=== PATIENT | male | born 1945 | race Caucasian/White ===

== ENCOUNTER 2016-08-05 06:12 | Inpatient (IN) | payer BC, OTHER ==
[~2016-08-05] VITALS: Ht 172.7 cm; Wt 70.3 kg
[2016-08-05] VITALS (24 sets, daily range): BP systolic 124–148; BP diastolic 66–93; PULSE 65–78; TEMP 36.5–37.7; O2SAT 97–100; Ht 172.7 cm; Wt 70.3 kg
[~2016-08-05 06:12] MED LIST: ATEN-173 PO; CHOL1TAB42 PO; COD1OIL4 PO; LUTE15CA PO; LYCOCAP2 PO; MULT-506 PO; [UNRECOGNIZED DRUG - CODE] PO
--- NOTE | 2016-08-05 06:53 | EMERGENCY ROOM VISIT NOTE ---
History First contact with patient: 06:30 Chief Complaint: CHEST PAIN Stated Complaint: CHEST PAIN,PAIN BEHIND EYES AND FOREHEAD-DULLACHE Nursing Triage Summary: pt states had some cp friday night and when he woke he was ok, then last night around 0 he devloepd cp again while sitting watching tv and eating pizza, some nausea at thsat time History of Present Illness The patient is a 71 year old male who presents to the Emergency Room with complaints of chest pain last night. Patient notes he was sitting at home last night approximately 10 o'clock eating pizza when the chest pain came on. The chest pain is sternal and pressure-like , rated at 6/10 without radiation. He did not try to ambulate at the time. The pain persisted which caused him to come to the ED for further evaluation. He had a similar episode the night prior where he notes he woke up feeling "uncomfortable/restless" without being able to be more specific. He notes a similar discomfort. He tried to walk and actually noted that it got better with ambulation. He was subsequently able to get back to sleep. He denies palpitations, shortness of breath, orthopnea or edema. He has not had any coughing or wheezing. He denies any prolonged periods of immobility or recent surgery In addition to his symptoms, he has noted a pressures-like pain in his face. He cannot rate the pain as it varies with how distracted he. The pain reminds him of when he has had sinus infections in the past. He denies any nasal discharge, sore throat or ear pressure. He denies any fevers, nightsweats and chills. Review of Systems Prostate Ca with Prostatectomy in 2000 Hypertension No noted history of cardiac disorders, CAD, Hypercholesterolemia or type 2 diabetes mellitus. Past Medical/Surgical History Medical Problems: (1) Hypertension Family History Mother had impaired fasting glucose Social History Smoking Status: Never Smoker Smokeless Tobacco Use: No Alcohol Use: occasionally (1 beer/week) Drug Use: none Marital Status: Housing Status: lives with significant other Occupation Status: retired Current/Historical Medications Scheduled Atenolol (Tenormin), 25 MG PO DAILY Cholecalciferol (Vitamin D), 1 TAB PO DAILY Cholecalciferol (Vitamin D), 1 TAB PO DAILY Cod Liver Oil (Cod Liver Oil), 1 PO DAILY Lutein-Zeaxanthin (Lutein), 1 CAP PO DAILY Lycopene (Lycopene), 1 CAP PO DAILY Multivitamin (Multivitamin), 1 TAB PO DAILY Pomegranate (Punica Granatum) (Pomegranate Extract), 1,000 MG PO DAILY Allergies Coded Allergies: No Known Allergies (Unverified , 08/05/16) Physical Exam Vital Signs Date Time Temp Pulse Resp B/P Pulse Ox O2 Delivery O2 Flow Rate FiO2 08/05/16 07:46 68 18 127/75 95 Room Air 08/05/16 07:30 75 18 166/87 95 Room Air 08/05/16 07:07 75 18 162/94 97 Room Air 08/05/16 06:23 94 08/05/16 06:21 99 Room Air 08/05/16 06:15 36.5 94 20 177/96 99 Room Air Pain Rating (0-10): 4 Physical Exam Constitutional: Vital signs as above were reviewed. Eyes: Pupils equal, round, and reactive to light. Extraocular muscles are intact. No proptosis. No photophobia. ENT: Mucous membranes are moist. Oropharynx is clear. No sinus tenderness. TMs are clear bilaterally. Cardiovascular: Heart with a regular rate and rhythm. Early systolic murmur at LLSB. Pulses are palpable and symmetric in all 4 extremities. JVD at 45 degrees. No pedal edema appreciated. Respiratory: Lungs clear to auscultation bilaterally. No wheezes, rales, or rhonchi appreciated. No accessory muscle use. No retractions. No increased work of breathing. GI: Abdomen soft, nontender, nondistended. Normal active bowel sounds. No abdominal hernias appreciated. No rebound. No guarding. : No CVA tenderness appreciated. Musculoskeletal: No midline cervical or vertebral tenderness. No gross deformities. No bony tenderness. No calf swelling or tenderness. Integumentary: Warm, dry, no rashes appreciated. Neurological: Patient awake, alert, and oriented x 3. Cranial nerves two through 12 grossly intact. Motor 5 out of 5 strength bilateral upper and lower extremities. No gross sensory deficits. [id number] is intact. Negative Romberg. Ambulates with a steady gait. Lymph: No cervical lymphadenopathy appreciated. Medical Decision & Procedures ER Provider Diagnostic Interpretation: EKG: Normal sinus rhythm rate 89 No ectopy or pauses RBBB Q waves in V3, V4, T waves in versions in lead V2 and V3 Laboratory Results 08/05/16 06:25 Red Blood Count 4.22, Mean Corpuscular Volume 91.0, Mean Corpuscular Hemoglobin 31.8, Mean Corpuscular Hemoglobin Concent 34.9, Mean Platelet Volume 10.5, Neutrophils (%) (Auto) 73.2, Lymphocytes (%) (Auto) 16.2, Monocytes (%) (Auto) 9.7, Eosinophils (%) (Auto) 0.8, Basophils (%) (Auto) 0.1, Neutrophils # (Auto) 5.42, Lymphocytes # (Auto) 1.20, Monocytes # (Auto) 0.72, Eosinophils # (Auto) 0.06, Basophils # (Auto) 0.01 08/05/16 06:25 Test 08/05/16 06:25 08/05/16 07:06 White Blood Count 7.41 K/uL (4.8-10.8) Red Blood Count 4.22 M/uL (4.7-6.1) Hemoglobin 13.4 g/dL (14.0-18.0) Hematocrit 38.4 % (42-52) Mean Corpuscular Volume 91.0 fL (80-100) Mean Corpuscular Hemoglobin 31.8 pg (25-34) Mean Corpuscular Hemoglobin Concent 34.9 g/dl (32-36) Platelet Count 226 K/uL (130-400) Mean Platelet Volume 10.5 fL (7.4-10.4) Neutrophils (%) (Auto) 73.2 % Lymphocytes (%) (Auto) 16.2 % Monocytes (%) (Auto) 9.7 % Eosinophils (%) (Auto) 0.8 % Basophils (%) (Auto) 0.1 % Neutrophils # (Auto) 5.42 K/uL (1.4-6.5) Lymphocytes # (Auto) 1.20 K/uL (1.2-3.4) Monocytes # (Auto) 0.72 K/uL (0.11-0.59) Eosinophils # (Auto) 0.06 K/uL (0-0.5) Basophils # (Auto) 0.01 K/uL (0-0.2) RDW Standard Deviation 42.8 fL (36.4-46.3) RDW Coefficient of Variation 12.9 % (11.5-14.5) Immature Granulocyte % (Auto) 0.0 % Immature Granulocyte # (Auto) 0.00 K/uL (0.00-0.02) Prothrombin Time 10.7 SECONDS (9.0-12.0) Prothromb Time International Ratio 1.0 (0.9-1.1) Activated Partial Thromboplast Time 26.0 SECONDS (21.0-31.0) Partial Thromboplastin Ratio 1.0 Anion Gap 10.0 mmol/L (3-11) Est Creatinine Clear Calc Drug Dose 72.3 ml/min Estimated GFR () 98.8 Estimated GFR (Non- 85.2 BUN/Creatinine Ratio 20.8 (10-20) Calcium Level 9.2 mg/dl (8.5-10.1) Total Bilirubin 0.5 mg/dl (0.2-1) Aspartate Amino Transf (AST/SGOT) 228 U/L (15-37) Alanine Aminotransferase (ALT/SGPT) 82 U/L (12-78) Alkaline Phosphatase 71 U/L (45-117) Total Creatine Kinase 1738 U/L (39-308) Creatine Kinase MB 124.5 ng/ml (0.5-3.6) Creatine Kinase MB Ratio 7.2 (0-3.0) Troponin I 45.500 ng/ml (0-0.045) Total Protein 7.9 gm/dl (6.4-8.2) Albumin 4.3 gm/dl (3.4-5.0) Globulin 3.6 gm/dl (2.5-4.0) Albumin/Globulin Ratio 1.2 (0.9-2) Bedside Troponin I 28.390 ng/ml (0-0.045) Medications Administered Medications (Trade) Dose Ordered Sig/Rober Route Start Time Stop Time Status Last Admin Dose Admin Nitroglycerin (Nitroglycerin 2% Oint) 1 inch Q6H EXT 08/05/16 07:00 09/04/16 06:59 08/05/16 07:07 1 INCH Nitroglycerin (Nitrostat Tab) 0.4 mg Q5M STAT SL 08/05/16 07:29 08/05/16 07:30 DC 08/05/16 07:33 0.4 MG Heparin Sodium/ Dextrose 1 ea NOW STAT N/A 08/05/16 07:58 08/05/16 08:00 DC 08/05/16 08:11 1 EA Aspirin (Aspirin Chew) 324 mg NOW STAT PO 08/05/16 08:07 08/05/16 08:09 DC 08/05/16 08:14 324 MG Amoxicillin/ Clavulanate Potassium (Augmentin Tab) 875 mg NOW ONCE PO 08/05/16 08:15 08/05/16 08:16 DC 08/05/16 08:15 875 MG Heparin Sodium/ Dextrose (Heparin 25,000 Unit/500ml D5W) 25,000 unit STK-MED ONCE .ROUTE 08/05/16 08:11 08/05/16 08:12 DC 08/05/16 08:16 25,000 UNIT Heparin Sodium (Porcine) (Heparin Sq 5000 Unit/0.5ml) 5,000 unit STK-MED ONCE .ROUTE 08/05/16 08:11 08/05/16 08:12 DC 08/05/16 08:15 5,000 UNIT Procedure [~ rep ct add3]] CHEST ONE VIEW PORTABLE CLINICAL HISTORY: chest pain COMPARISON STUDY: No previous studies for comparison. FINDINGS: The heart is normal in size given the AP technique. There is no focal pulmonary consolidation. There is no failure. There are no pleural effusions. Underlying emphysema is suspected.[ IMPRESSION: No active disease in the chest. CT OF THE HEAD WITHOUT CONTRAST CLINICAL HISTORY: Pain behind eyes and forehead. Evaluate for bleed. COMPARISON STUDY: No previous studies for comparison. CT DOSE: 687.98 mGy.cm TECHNIQUE: Helical axial images of the head were obtained without IV contrast. Automated exposure control was utilized for the study. FINDINGS: No acute intracranial hemorrhage, midline shift or mass effect is present. Ventricular system is unremarkable Global. The basilar cisterns are patent. There are no extra-axial collections. Stewart-white differentiation is maintained. There are no findings to suggest acute dural sinus thrombosis or acute territorial infarct. Mastoid air cells are clear. Right anterior ethmoid air cells and the right frontal sinus are opacified. There are no calvarial abnormalities. IMPRESSION: 1. No acute intracranial findings. 2. Right anterior ethmoid and frontal sinus opacification. ED Course 06:30 - Patient seen and assessed 07:00 - Discussed case with Dr. Azevedo, attending ED physician Initial orders placed: CBC, CMP, Cardiac Enzymes with CXR 1 inch Nitro Ointment 07:45 - Discussed with attending; troponin returns at 45 Patient complaints of worsening frontal pain CT sinuses ordered and pending Dr. Azevedo has discussed case with hospitalist service, patient to be admitted for further monitoring/evaluation 08:00 - CT Reviewed; no evidence of intracranial bleed; right sinus opacification ASA 325 mg STAT Heparin IV drip Medical Decision Patient presents with substernal chest pain. In addition, CT has right sinus opacification suggestive of acute sinusitis. Differential includes, Angina, ACS, Pneumonia, Pneumothorax, Pleural effusion, Pleurisy, Costochondritis, GERD. Chest x-ray reviewed and rules out Pneumothorax, or effusion. Troponin positive at 45, patient does have T wave inversions V1 and V2 with Q waves in V3 and V4. Patient requires initiation of ACS protocol with high doses ASA as well as initiation of IV heparin drip. Regarding, sinusitis, patient to be started on course of Augmentin. A consultation was placed with the hospitalist. The case was discussed and diagnostics were reviewed. The patient will be evaluated in the ER for further treatment. Impression Primary Impression: Acute myocardial infarction Additional Impressions: Acute bacterial sinusitis Hypertension Departure Information Dispostion Being Evaluated By Hospitalist Condition GOOD Referrals Nima Chavarria M.D. (PCP) Patient Instructions [facility] Problem Qualifiers
[2016-08-05] MEDS ORDERED: NITROGLYCERIN OINT 2% 1GM PACKET EXT SCH (07:00)
[2016-08-05] MEDS ORDERED: NITROGLYCERIN OINT 2% 1GM PACKET ONE (07:05)
[2016-08-05 07:06] LABS: BASO % 0.1 %; BASO ABS # 0.01 K/uL (0-0.2); COMPLETE YES; EOS % 0.8 %; HEMATOCRIT 38.4 % (42-52); LYMPH % 16.2 %; MEAN CORPUSCULAR HEMOGLOBIN 31.8 pg (25-34); MEAN CORPUSCULAR HGB CONC 34.9 g/dl (32-36); MEAN PLATELET VOLUME 10.5 fL (7.4-10.4); MONO % 9.7 %; NEUT % 73.2 %; PLATELET COUNT 226 K/uL (130-400); RED BLOOD COUNT 4.22 M/uL (4.7-6.1); WHITE BLOOD COUNT 7.41 K/uL (4.8-10.8)
[2016-08-05 07:15] LABS: BUN/CREATININE RATIO 20.8 (10-20); CALCIUM 9.2 mg/dl (8.5-10.1); CREATININE 0.88 mg/dl (0.60-1.40); POTASSIUM 3.8 mmol/L (3.5-5.1)
--- NOTE | 2016-08-05 07:15 | DIAGNOSTIC IMAGING REPORT ---
CHEST ONE VIEW PORTABLE CLINICAL HISTORY: chest pain COMPARISON STUDY: No previous studies for comparison. FINDINGS: The heart is normal in size given the AP technique. There is no focal pulmonary consolidation. There is no failure. There are no pleural effusions. Underlying emphysema is suspected.[ IMPRESSION: No active disease in the chest. Electronically signed by: Romaine Diaz M.D. 08/05/2016 7:13 AM Dictated Date/Time: 08/05/2016 7:13 AM
[2016-08-05] MEDS ORDERED: NITROGLYCERIN 0.4 MG SL PER TAB CHARGE SL STA (07:29)
[2016-08-05 07:41] LABS: PROTHROMBIN TIME (PATIENT) 10.7 SECONDS (9.0-12.0)
[2016-08-05 07:45] LABS: ALB/GLOB RATIO 1.2 (0.9-2); CKMB/CK RATIO 7.2 (0-3.0)
--- NOTE | 2016-08-05 07:53 | DIAGNOSTIC IMAGING REPORT ---
CT OF THE HEAD WITHOUT CONTRAST CLINICAL HISTORY: Pain behind eyes and forehead. Evaluate for bleed. COMPARISON STUDY: No previous studies for comparison. CT DOSE: 687.98 mGy.cm TECHNIQUE: Helical axial images of the head were obtained without IV contrast. Automated exposure control was utilized for the study. FINDINGS: No acute intracranial hemorrhage, midline shift or mass effect is present. Ventricular system is unremarkable Global. The basilar cisterns are patent. There are no extra-axial collections. Stewart-white differentiation is maintained. There are no findings to suggest acute dural sinus thrombosis or acute territorial infarct. Mastoid air cells are clear. Right anterior ethmoid air cells and the right frontal sinus are opacified. There are no calvarial abnormalities. IMPRESSION: 1. No acute intracranial findings. 2. Right anterior ethmoid and frontal sinus opacification. Electronically signed by: Alden Resendiz M.D. 08/05/2016 7:51 AM Dictated Date/Time: 08/05/2016 7:48 AM
[2016-08-05] MEDS ORDERED: ASPIRIN 325 MG ECTAB PO STA (07:58)
[2016-08-05] MEDS ORDERED: ASPIRIN 324 MG CHEW PO STA (08:07)
[2016-08-05] MEDS ORDERED: HEPARIN SOD 5000 UNIT/0.5 ML CARP ONE (08:11)
[2016-08-05] MEDS ORDERED: HEPARIN 25000 UNIT/500 ML D5W ONE (08:11)
[2016-08-05] MEDS ORDERED: AMOXICILLIN/CLAVULANATE TAB 875 MG TAB PO ONE (08:15)
[2016-08-05] MEDS ORDERED: ACETAMINOPHEN 325 MG TAB PO PRN ×2 (08:45→14:30)
[2016-08-05] MEDS ORDERED: MAGNESIUM HYDROXIDE SUSP 30 ML UDC PO PRN (08:45)
[2016-08-05] MEDS ORDERED: NITROGLYCERIN 0.4 MG SL PER TAB CHARGE SL PRN ×2 (08:45→14:30)
[2016-08-05] MEDS ORDERED: ALUMINUM/MAGNESIUM/SIMETH (MAALOX MAX) 30 ML UDC PO PRN (08:45)
[2016-08-05] MEDS ORDERED: MoRPHine SULFATE 2 MG/ML CARP IV PRN (08:45)
[2016-08-05] MEDS ORDERED: ONDANSETRON INJ 2 MG/ML 2 ML VIAL IV PRN (08:45)
[2016-08-05] MEDS ORDERED: ACETAMINOPHEN 325 MG TAB ONE (08:47)
--- NOTE | 2016-08-05 08:58 | History and Physical ---
History & Physical Date & Time of Service: Aug 05, 2016 at 08:47 Chief Complaint: Chest Pain,Pain Behind Eyes And Forehead-Dullache Primary Care Physician: Nima Chavarria M.D. History of Present Illness Source: patient, family The patient is a 71 year old male who presents to the Emergency Room with chest pain. He was watching TV last night when he started having substernal mild chest pressure, associated with bi frontal headache. Also associated with some chills and nausea. denied any palpitation or SOB. pain started at rest and has been waxing and weaning, currently 2/10 (6/10 in severity at its worst) walking helped alleviate some of his discomfort. admits history of hypertension that he takes atenolol daily for and a prostatectomy due to prostate cancer in 2000. other than that he is fairly healthy Past Medical/Surgical History Medical Problems: (1) Hypertension Status: Chronic Family History Patient reports no known family medical history. Social History Smoking Status: Never Smoker Smokeless Tobacco Use: No Drug Use: none Marital Status: Occupational Status: retired Multi-Drug Resistant Organisms History of MDRO: No Allergies Coded Allergies: No Known Allergies (Unverified , 08/05/16) Home Medications Scheduled Atenolol (Tenormin), 25 MG PO DAILY Cholecalciferol (Vitamin D), 1 TAB PO DAILY Cholecalciferol (Vitamin D), 1 TAB PO DAILY Cod Liver Oil (Cod Liver Oil), 1 PO DAILY Lutein-Zeaxanthin (Lutein), 1 CAP PO DAILY Lycopene (Lycopene), 1 CAP PO DAILY Multivitamin (Multivitamin), 1 TAB PO DAILY Pomegranate (Punica Granatum) (Pomegranate Extract), 1,000 MG PO DAILY Review of Systems Constitutional: + chills, No fever, No sweats ENT: No hearing loss Respiratory: No cough, No dyspnea at rest, No dyspnea on exertion, No shortness of breath Cardiovascular: + chest pain, No edema, No palpitations Abdomen: + nausea, No pain, No vomiting Musculoskeletal: + joint pain, + muscle pain Neurologic: No numbness/tingling, No paralysis, No vertigo, No weakness Psychiatric: No depression symptoms Endocrine: + fatigue Physical Exam Vital Signs Date Time Temp Pulse Resp B/P Pulse Ox O2 Delivery O2 Flow Rate FiO2 08/05/16 07:46 68 18 127/75 95 Room Air 08/05/16 07:30 75 18 166/87 95 Room Air 08/05/16 07:07 75 18 162/94 97 Room Air 08/05/16 06:23 94 08/05/16 06:21 99 Room Air 08/05/16 06:15 36.5 94 20 177/96 99 Room Air General Appearance: no apparent distress, + thin Eyes: normal inspection, PERRL, EOMI ENT: hearing grossly normal Neck: supple, thyroid normal Respiratory/Chest: chest non-tender, lungs clear, normal breath sounds, no respiratory distress, no accessory muscle use Cardiovascular: regular rate, rhythm, no edema, no gallop, no murmur, normal peripheral pulses Abdomen/GI: non tender, soft Back: normal inspection, no muscle spasm Extremities/Musculoskelatal: normal inspection, no pedal edema, normal range of motion, non-tender Neurologic/Psych: balloon maker II-XII nml as tested, no motor/sensory deficits, alert, normal mood/affect, normal reflexes, oriented x 3 Skin: normal color, warm/dry, no rash Diagnostics Laboratory Results Results Past 24 Hours Test 08/05/16 06:25 08/05/16 07:06 08/05/16 08:35 08/05/16 08:43 Range/Units White Blood Count 7.41 4.8-10.8 K/uL Red Blood Count 4.22 4.7-6.1 M/uL Hemoglobin 13.4 14.0-18.0 g/dL Hematocrit 38.4 42-52 % Mean Corpuscular Volume 91.0 80-100 fL Mean Corpuscular Hemoglobin 31.8 25-34 pg Mean Corpuscular Hemoglobin Concent 34.9 32-36 g/dl Platelet Count 226 130-400 K/uL Mean Platelet Volume 10.5 7.4-10.4 fL Neutrophils (%) (Auto) 73.2 % Lymphocytes (%) (Auto) 16.2 % Monocytes (%) (Auto) 9.7 % Eosinophils (%) (Auto) 0.8 % Basophils (%) (Auto) 0.1 % Neutrophils # (Auto) 5.42 1.4-6.5 K/uL Lymphocytes # (Auto) 1.20 1.2-3.4 K/uL Monocytes # (Auto) 0.72 0.11-0.59 K/uL Eosinophils # (Auto) 0.06 0-0.5 K/uL Basophils # (Auto) 0.01 0-0.2 K/uL RDW Standard Deviation 42.8 36.4-46.3 fL RDW Coefficient of Variation 12.9 11.5-14.5 % Immature Granulocyte % (Auto) 0.0 % Immature Granulocyte # (Auto) 0.00 0.00-0.02 K/uL Prothrombin Time 10.7 9.0-12.0 SECONDS Prothromb Time International Ratio 1.0 0.9-1.1 Activated Partial Thromboplast Time 26.0 21.0-31.0 SECONDS Partial Thromboplastin Ratio 1.0 Sodium Level 140 136-145 mmol/L Potassium Level 3.8 3.5-5.1 mmol/L Chloride Level 104 98-107 mmol/L Carbon Dioxide Level 26 21-32 mmol/L Anion Gap 10.0 3-11 mmol/L Blood Urea Nitrogen 18 7-18 mg/dl Creatinine 0.88 0.60-1.40 mg/dl Est Creatinine Clear Calc Drug Dose 72.3 ml/min Estimated GFR () 98.8 Estimated GFR (Non- 85.2 BUN/Creatinine Ratio 20.8 10-20 Random Glucose 145 70-99 mg/dl Calcium Level 9.2 8.5-10.1 mg/dl Total Bilirubin 0.5 0.2-1 mg/dl Aspartate Amino Transf (AST/SGOT) 228 15-37 U/L Alanine Aminotransferase (ALT/SGPT) 82 12-78 U/L Alkaline Phosphatase 71 45-117 U/L Total Creatine Kinase 1738 39-308 U/L Creatine Kinase MB 124.5 0.5-3.6 ng/ml Creatine Kinase MB Ratio 7.2 0-3.0 Troponin I 45.500 0-0.045 ng/ml Total Protein 7.9 6.4-8.2 gm/dl Albumin 4.3 3.4-5.0 gm/dl Globulin 3.6 2.5-4.0 gm/dl Albumin/Globulin Ratio 1.2 0.9-2 Bedside Troponin I 28.390 0-0.045 ng/ml CXR normal EKG depression in marleen lateral leads, Q waves normal sinus Impression Assessment and Plan NSTEMI HTN Acute Sinusitis Plan: Admit to ICU Consult hod carrier serial cardiac enz Heparin drip Aspirin stat NTG paste Home meds (atenolol 25mg) Lipids panel HgbA1C case was discussed with hod carrier Yuly who kindly agreed to see the patient VTE Prophylaxis VTE Risk Assessment Done? Y/N: Yes Risk Level: High
[2016-08-05] MEDS: RANITIDINE HCL 150 MG TAB PO SCH ×2 (09:00→20:49)
--- NOTE | 2016-08-05 09:03 | EMERGENCY ROOM VISIT NOTE ---
History Report prepared by Tyshawn: Zurdo Tavera Under the Supervision of: Dr. Willie Azevedo M.D. First contact with patient: 06:32 Chief Complaint: CHEST PAIN Stated Complaint: CHEST PAIN,PAIN BEHIND EYES AND FOREHEAD-DULLACHE Nursing Triage Summary: pt states had some cp friday night and when he woke y he was ok, then last night around 2200 he devloepd cp again while sitting watching tv and eating pizza, some nausea at thsat time History of Present Illness The patient is a 71 year old male who presents to the Emergency Room with complaints of waxing and waning chest pain beginning nine hours prior to arrival. He describes his pain as an ache/pressure and currently rates his discomfort as a 4/10 in severity. The patient associates intermittent jaw pain with today's symptoms. He states his chest pain began last evening around 2200, while he was sitting down, watching TV, and eating pizza. He notes the pain persisted throughout the night, in which, walking helped alleviate some of his discomfort. The patient states his chest pain was a 6/10 in severity at its worst. He also complains of sinus pressure in his face that has been giving him discomfort. The patient notes the sinus pressure is similar to his sinus problems in the past. The states he has a history of hypertension that he takes medication for and a prostatectomy due to prostate cancer. He denies a personal and family history of heart disease. The patient denies swelling or pain in his legs, chest pain radiating to his arms or back, shortness of breath, cough, and sorethroat. 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 Review of Systems See HPI for pertinent positives & negatives. A total of 10 systems reviewed and were otherwise negative. Past Medical & Surgical Medical Problems: (1) Chest pain (2) Hypertension Family History Patient reports no known family medical history. Social History Smoking Status: Never Smoker Smokeless Tobacco Use: No Alcohol Use: occasionally (1 beer/week) Drug Use: none Marital Status: Housing Status: lives with significant other Occupation Status: retired Current/Historical Medications Scheduled Atenolol (Tenormin), 25 MG PO DAILY Cholecalciferol (Vitamin D), 1 TAB PO DAILY Cholecalciferol (Vitamin D), 1 TAB PO DAILY Cod Liver Oil (Cod Liver Oil), 1 PO DAILY Lutein-Zeaxanthin (Lutein), 1 CAP PO DAILY Lycopene (Lycopene), 1 CAP PO DAILY Multivitamin (Multivitamin), 1 TAB PO DAILY Pomegranate (Punica Granatum) (Pomegranate Extract), 1,000 MG PO DAILY Allergies Coded Allergies: No Known Allergies (Unverified , 08/05/16) Physical Exam Vital Signs Date Time Temp Pulse Resp B/P Pulse Ox O2 Delivery O2 Flow Rate FiO2 08/05/16 08:46 62 18 134/71 96 Room Air 08/05/16 07:46 68 18 127/75 95 Room Air 08/05/16 07:30 75 18 166/87 95 Room Air 08/05/16 07:07 75 18 162/94 97 Room Air 08/05/16 06:23 94 08/05/16 06:21 99 Room Air 08/05/16 06:15 36.5 94 20 177/96 99 Room Air Physical Exam Constitutional: Vital signs reviewed. Eyes: Pupils are equal round reactive to light. Conjunctiva are noninjected. ENT: Pharynx is clear without erythema or exudate. Mucous membranes are moist. Neck supple without meningeal signs. Respiratory: Clear to auscultation bilaterally. Breath sounds are equal bilaterally. Cardiovascular: Regular rate and rhythm. No rubs or gallops. GI: Soft, nondistended and nontender. Bowel sounds are present. Musculoskeletal: No peripheral edema. No lower extremity tenderness. Integumentary: No cyanosis. Neurological: The patient is awake and alert. No focal deficits. Psychiatric: Normal affect. Medical Decision & Procedures ER Provider Diagnostic Interpretation: X-ray results as stated below per interpretation by me and the radiologist: CT results as stated below per my review and radiologist interpretation. CHEST ONE VIEW PORTABLE CLINICAL HISTORY: chest pain COMPARISON STUDY: No previous studies for comparison. FINDINGS: The heart is normal in size given the AP technique. There is no focal pulmonary consolidation. There is no failure. There are no pleural effusions. Underlying emphysema is suspected.[ IMPRESSION: No active disease in the chest. Electronically signed by: Romaine Diaz M.D. 08/05/2016 7:[address] OF THE HEAD WITHOUT CONTRAST CLINICAL HISTORY: Pain behind eyes and forehead. Evaluate for bleed. COMPARISON STUDY: No previous studies for comparison. CT DOSE: 687.98 mGy.cm TECHNIQUE: Helical axial images of the head were obtained without IV contrast. Automated exposure control was utilized for the study. FINDINGS: No acute intracranial hemorrhage, midline shift or mass effect is present. Ventricular system is unremarkable Global. The basilar cisterns are patent. There are no extra-axial collections. Stewart-white differentiation is maintained. There are no findings to suggest acute dural sinus thrombosis or acute territorial infarct. Mastoid air cells are clear. Right anterior ethmoid air cells and the right frontal sinus are opacified. There are no calvarial abnormalities. IMPRESSION: 1. No acute intracranial findings. 2. Right anterior ethmoid and frontal sinus opacification. Electronically signed by: Alden Resendiz M.D. 08/05/2016 7:51 AM Dictated Date/Time: 08/05/2016 7:48 AM Laboratory Results 08/05/16 06:25 Red Blood Count 4.22, Mean Corpuscular Volume 91.0, Mean Corpuscular Hemoglobin 31.8, Mean Corpuscular Hemoglobin Concent 34.9, Mean Platelet Volume 10.5, Neutrophils (%) (Auto) 73.2, Lymphocytes (%) (Auto) 16.2, Monocytes (%) (Auto) 9.7, Eosinophils (%) (Auto) 0.8, Basophils (%) (Auto) 0.1, Neutrophils # (Auto) 5.42, Lymphocytes # (Auto) 1.20, Monocytes # (Auto) 0.72, Eosinophils # (Auto) 0.06, Basophils # (Auto) 0.01 08/05/16 06:25 Test 08/05/16 06:25 08/05/16 06:35 08/05/16 07:06 08/05/16 08:35 White Blood Count 7.41 K/uL (4.8-10.8) Red Blood Count 4.22 M/uL (4.7-6.1) Hemoglobin 13.4 g/dL (14.0-18.0) Hematocrit 38.4 % (42-52) Mean Corpuscular Volume 91.0 fL (80-100) Mean Corpuscular Hemoglobin 31.8 pg (25-34) Mean Corpuscular Hemoglobin Concent 34.9 g/dl (32-36) Platelet Count 226 K/uL (130-400) Mean Platelet Volume 10.5 fL (7.4-10.4) Neutrophils (%) (Auto) 73.2 % Lymphocytes (%) (Auto) 16.2 % Monocytes (%) (Auto) 9.7 % Eosinophils (%) (Auto) 0.8 % Basophils (%) (Auto) 0.1 % Neutrophils # (Auto) 5.42 K/uL (1.4-6.5) Lymphocytes # (Auto) 1.20 K/uL (1.2-3.4) Monocytes # (Auto) 0.72 K/uL (0.11-0.59) Eosinophils # (Auto) 0.06 K/uL (0-0.5) Basophils # (Auto) 0.01 K/uL (0-0.2) RDW Standard Deviation 42.8 fL (36.4-46.3) RDW Coefficient of Variation 12.9 % (11.5-14.5) Immature Granulocyte % (Auto) 0.0 % Immature Granulocyte # (Auto) 0.00 K/uL (0.00-0.02) Prothrombin Time 10.7 SECONDS (9.0-12.0) Prothromb Time International Ratio 1.0 (0.9-1.1) Activated Partial Thromboplast Time 26.0 SECONDS (21.0-31.0) Partial Thromboplastin Ratio 1.0 D-Dimer 230 ug/L FEU (0-500) Anion Gap 10.0 mmol/L (3-11) Est Creatinine Clear Calc Drug Dose 72.3 ml/min Estimated GFR () 98.8 Estimated GFR (Non- 85.2 BUN/Creatinine Ratio 20.8 (10-20) Calcium Level 9.2 mg/dl (8.5-10.1) Phosphorus Level 2.5 mg/dl (2.5-4.9) Magnesium Level 2.0 mg/dl (1.8-2.4) Total Bilirubin 0.5 mg/dl (0.2-1) Aspartate Amino Transf (AST/SGOT) 228 U/L (15-37) Alanine Aminotransferase (ALT/SGPT) 82 U/L (12-78) Alkaline Phosphatase 71 U/L (45-117) Total Protein 7.9 gm/dl (6.4-8.2) Albumin 4.3 gm/dl (3.4-5.0) Globulin 3.6 gm/dl (2.5-4.0) Albumin/Globulin Ratio 1.2 (0.9-2) Triglycerides Level 86 mg/dl (0-150) Cholesterol Level 240 mg/dl (0-200) HDL Cholesterol 93 mg/dl LDL Cholesterol, Calculated 130 mg/dl VLDL Cholesterol, Calculated 17 mg/dl Cholesterol/HDL Ratio 2.6 Estimated Average Glucose 108 mg/dl Hemoglobin A1c 5.4 % (4.5-5.6) Bedside Troponin I 28.390 ng/ml (0-0.045) Creatine Kinase MB Ratio (0-3.0) Test 08/05/16 09:36 Laboratory results as reviewed by me. Medications Administered Medications (Trade) Dose Ordered Sig/Rober Route Start Time Stop Time Status Last Admin Dose Admin Nitroglycerin (Nitroglycerin 2% Oint) 1 inch Q6H EXT 08/05/16 07:00 09/04/16 06:59 08/05/16 07:07 1 INCH Nitroglycerin (Nitrostat Tab) 0.4 mg Q5M STAT SL 08/05/16 07:29 08/05/16 07:30 DC 08/05/16 07:33 0.4 MG Heparin Sodium/ Dextrose 1 ea NOW STAT N/A 08/05/16 07:58 08/05/16 08:00 DC 08/05/16 08:11 1 EA Aspirin (Aspirin Chew) 324 mg NOW STAT PO 08/05/16 08:07 08/05/16 08:09 DC 08/05/16 08:14 324 MG Amoxicillin/ Clavulanate Potassium (Augmentin Tab) 875 mg NOW ONCE PO 08/05/16 08:15 08/05/16 08:16 DC 08/05/16 08:15 875 MG Heparin Sodium/ Dextrose (Heparin 25,000 Unit/500ml D5W) 25,000 unit STK-MED ONCE .ROUTE 08/05/16 08:11 08/05/16 08:12 DC 08/05/16 08:16 25,000 UNIT Heparin Sodium (Porcine) (Heparin Sq 5000 Unit/0.5ml) 5,000 unit STK-MED ONCE .ROUTE 08/05/16 08:11 08/05/16 08:12 DC 08/05/16 08:15 5,000 UNIT Acetaminophen (Tylenol Tab) 650 mg STK-MED ONCE .ROUTE 08/05/16 08:47 08/05/16 08:49 DC 08/05/16 08:51 650 MG ECG Indication: chest pain Rate (beats per minute): 89 Rhythm: normal sinus Findings: RBBB, no ectopy Comparison ECG Date: no prior available Change: Repeat EKG: Normal sinus rhythm. Rate 75. Persistent RBBB. T wave inversions anteriorly. No ectopy. ED Course 0659: The patient was evaluated in room A10. A complete history and physical exam was performed. 0700: Ordered Nitroglycerin 1 inch EXT. 0728: I reassessed the patient at this time, and he states his chest pain is now a 2-3/10 in severity after Nitro. The patient notes his sinus pressure is bothering him the most at this time. I discussed the patient's results with him , including his elevated troponin. I performed a repeat 12-Lead EKG, as well. 0729: Ordered Nitroglycerin 0.4 mg SL. Repeat EKG: Normal sinus rhythm. Rate 75. Persistent RBBB. T wave inversions anteriorly. No ectopy. 0735: I spoke to NOÉ Cervantes (Hospitalist) about the patient's case, and she will follow the patient for further evaluation. 0747: As per nurse, chest pain is almost completely resolved. 0758: Ordered Heparin Sodium/ Dextrose 1 ea N/A. 0806: I reassessed the patient at this time, and his chest pain is very faint and almost gone. I reviewed the CT results with him. 0807: Ordered Aspirin 324 mg PO. 0809: I spoke to NOÉ Barillas (Hospitalist) about the patient's care, and he will consult cardiology. 0815: Ordered Augmentin Tab 875 mg PO. 0833: I spoke to NOÉ Pacheco (Hospitalist), who stated he spoke to cardiology. Medical Decision This is a 71-year-old male who presents with chest discomfort and sinus pressure. Differential diagnosis includes unstable angina, ID, GERD, pleurisy, sinusitis. I did perform a limited focused review of portions of the patient's old chart on the electronic medical record. The patient has had no recent pertinent visits to this hospital. I did evaluate the patient as noted above. The patient is presenting with chest discomfort and sinus pressure. He states the sinus pressure and chest discomfort kept him up all night. His pain started at 10 PM. IV access was established. The patient was placed on a continuous edge banding off bearer. I did treat the patient with nitroglycerin paste. I did order and personally review the patient's 12-lead EKG and chest x-ray as described above. He does have a right bundle branch block with Q waves anteriorly. No evidence of STEMI. I did order and review the patient's blood work as noted in the electronic medical record. His troponin is elevated. I did reassess the patient. A second 12-lead EKG was performed which shows a persistent right bundle branch block and Q waves. No signs of STEMI. I did treat him with nitroglycerin sublingually. His chest pain was almost completely resolved. He complained more of sinus pressure at this time. I did review the risks and benefits of IV heparin with the patient and his . I did order a CT of the head. I did review the images myself as well as the radiology report as described above. There is no evidence of bleed. He does have right-sided sinus infection. I did discuss the test results with the patient. I did treat him with IV heparin and aspirin. I did discuss the case with the hospitalist who will consult cardiology. I did reassess the patient multiple times. Resident Physician Supervision Note: I did evaluate and examine this patient myself. I did guide management for the patient. I agree with the resident's ( ) assessment as discussed. Please see the resident's dictation for further details. Consults Time Called: 1931 Consulting Physician: NOÉ Cervantes (Hospitalist) Returned Call: 1934 I spoke to NOÉ Cervantes (Hospitalist) about the patient's case, and she will follow the patient for further evaluation. Additional Consults: Time Called: 807 Consulted Physician: NOÉ Barillas (Hospitalist) Returned Call: 808 Additional Comments: I spoke to NOÉ Barillas (Hospitalist) about the patient's care, and he will consult cardiology. Time Called: 0832 Consulted Physician: NOÉ Barillas (Hospitalist) Returned Call: 0833 Additional Comments: I spoke to NOÉ Barillas (Hospitalist), who stated he spoke to cardiology. Impression Primary Impression: Non-STEMI (non-ST elevated myocardial infarction) Additional Impression: Sinusitis Critical Care I have personally spent greater than 30 minutes of critical care time in the direct management of this patient. This includes bedside care, interpretation of diagnostic studies, and testing, discussion with consultants, patient, and family members, and other required patient management activities. This 30 minutes is in excess of all separately billable procedures. Scribe Attestation The scribe's documentation has been prepared under my direct and personally reviewed by me in its entirety. I confirm that the note above accurately reflects all work, treatment, procedures, and medical decision making performed by me. Departure Information Dispostion Being Evaluated By Hospitalist (NOÉ Cervantes (Hospitalist)) Referrals Nima Chavarria M.D. (PCP) Problem Qualifiers Additional Impression: Sinusitis Sinusitis location: unspecified location Chronicity: acute Recurrence: not specified as recurrent Qualified Codes: J01.90 - Acute sinusitis, unspecified
[2016-08-05 09:28] LABS: ESTIMATED AVERAGE GLUCOSE 108 mg/dl; HA1C FLAG Normal (Normal)
[2016-08-05 09:44] LABS: CHOLESTEROL/HDL RATIO 2.6; PHOSPHORUS 2.5 mg/dl (2.5-4.9)
[2016-08-05] MEDS ORDERED: HEPARIN 25,000 UNIT/500ML D5W 500 ML IV PRN (10:30)
[2016-08-05 10:40] LABS: CKMB/CK RATIO 6.8 (0-3.0)
[2016-08-05] MEDS ORDERED: SODIUM CHLORIDE 0.9% 1000ML 1,000 ML IV SCH ×2 (10:50→14:30)
[2016-08-05] MEDS: NITROGLYCERIN OINT 2% 1GM PACKET EXT SCH ×2 (11:59→18:23)
[2016-08-05] MEDS: LORAZEPAM 0.5 MG TAB PO PRN ×2 (12:00→22:04)
[2016-08-05] MEDS: HEPARIN SOD (PORCINE) 1000 UNIT/ML 10 ML VIAL ONE (12:15)
[2016-08-05] MEDS ORDERED: FENTANYL CITRATE INJ 50 MCG/1 ML 2 ML VIAL ONE (12:15)
[2016-08-05] MEDS ORDERED: MIDAZOLAM HCL 1 MG/ML 2ML VIAL ONE (12:15)
[2016-08-05] MEDS ORDERED: NiCARDipine HCL INJ 2.5 MG/ML 10 ML AMP ONE (12:15)
[2016-08-05] MEDS ORDERED: NITROGLYCERIN/D5W 100MCG/ML 20ML SYR ONE (12:16)
[2016-08-05] MEDS: SODIUM CHLORIDE 0.65% NA SOLN 45 ML (OCEAN) SCH ×3 (13:00→20:47)
--- NOTE | 2016-08-05 13:15 | CARDIOLOGY CONSULTATION ---
DATE OF CONSULTATION: 08/05/2016 AGE: 71. CONSULTATION REQUESTED BY: Dr. Paulina Marquez. REASON FOR CONSULTATION: NSTEMI. HISTORY OF PRESENT ILLNESS: Mr. Irizarry is a very pleasant 71-year-old man without significant past medical history who presented today with approximately 10 hours of chest pain beginning last night. The patient was noted to have elevated cardiac enzymes and dynamic EKG changes concerning for NSTEMI. Cardiology consulted for further management and recommendations. The patient states he had been in his usual state of health up until approximately 2 days prior to admission. Then he just stated that he just did not feel generally well and noted some headache and generalized fatigue without significant chest pain. He went to bed, woke up the next day was feeling fine, carrying on his normal activities without any limitations and on that night at approximately 10:00 p.m. developed acute onset of chest pressure which was associated with general feeling of unwell as well as continued headache, attempted to go to sleep but continued to have pain on and off through the remainder of the night and due to continued pain, presented to the Emergency Department at 6:12 this morning. Upon presentation, the patient was initially hypertensive with systolic blood pressures in the 170s, satting 99% on room air. His initial EKG showed sinus rhythm with new right bundle branch block and anterolateral Q-waves and subtle anterolateral ST elevations in V1, aVL, V3, V4, and V5. The patient was started on heparin and nitro drip, and admission was called for. Initial point of care troponin was positive at 28 with subsequent troponin of 45 and later now to 65. At time of interview, I discussed heart catheterization with the patient, but he was very reluctant to proceed due to concerns for risks of the procedure. After multiple conversations, the patient was willing to proceed with the planned procedure. PAST MEDICAL HISTORY: 1. Prostate cancer status post radical prostatectomy did not require radiation therapy and no other significant past medical history. 2. Hypertension. SOCIAL HISTORY: Denies tobacco or alcohol use. Denies illicit drug use. Is and lives with his . FAMILY HISTORY: Denies any history of premature coronary artery disease or sudden cardiac . REVIEW OF SYSTEMS: Ten-point review of systems was completed and otherwise negative unless stated in HPI. HOME MEDICATIONS: Include atenolol, vitamin D, cod liver oil, Lutein, multivitamin. PHYSICAL EXAMINATION: VITAL SIGNS: Temperature 36.5, heart rate 69, blood pressure 137/71. He is satting 97% on room air. GENERAL: The patient appears comfortable, anxious, in no acute distress. HEENT: Sclerae are anicteric. Oropharynx is clear. Mucous membranes are moist. NECK: Supple with no lymphadenopathy. LUNGS: Clear to auscultation bilaterally. HEART: Regular rate and rhythm with no appreciable murmurs, rubs or gallops. ABDOMEN: Soft, nontender, nondistended with positive bowel sounds. EXTREMITIES: Warm. He has intact distal pulses including 2+ radial pulses bilaterally. SKIN: Shows no rashes or lesions. NEUROLOGIC: Nonfocal with cranial nerves II-XII grossly intact. LABORATORY DATA: Sodium 140, potassium 3.8, BUN 18, creatinine 0.9, AST elevated at 228, ALT 82, CK-MB positive at 124. Initial point of care troponin 28. Initial troponin of 45, now up to 63. Lipids: Total cholesterol 240, HDL 93, triglycerides 86, LDL of 130. A1c of 5.4, hemoglobin of 13.4, white blood cell count 7.4, and platelets of 226. INR is 1.0. D-dimer 230. IMAGING: Chest x-ray shows no active disease. Head CT shows no acute intracranial process with right anterior ethmoid and frontal sinus opacification. IMPRESSION AND PLAN: 1. High risk non-ST elevation myocardial infarction. 2. Hypertension. 3. Acute sinusitis. The patient with significantly elevated troponin, dynamic EKG changes, concerning for high risk non-ST elevation myocardial infarction. In that setting I feel that early invasive approach is warranted and should proceed with cardiac catheterization. After multiple discussions with the patient, he is willing to proceed and we will plan to do procedure this afternoon. In the interim, agree with continuing on aspirin and heparin drip, nitro paste and high dose statin. Further recommendations, pending findings of heart catheterization. PIPPAD
[2016-08-05] MEDS ORDERED: EPTIFIBATIDE 2 MG/ML 10 ML VIAL IV ONE (14:05)
[2016-08-05] MEDS ORDERED: EPTIFIBATIDE 0.75 MG/ML 75MG VIAL IV ONE (14:05)
[2016-08-05] MEDS ORDERED: TICAGRELOR 90 MG TAB PO ONE (14:09)
--- NOTE | 2016-08-05 14:24 | Procedure Note ---
Pre-Mod Sedation Assessment General Date of Moderate Sedation: Aug 05, 2016. Vital Signs: Vital Signs Past 12 Hours Date Time Temp Pulse Resp B/P Pulse Ox O2 Delivery O2 Flow Rate FiO2 08/05/16 14:20 70 16 138/77 100 Room Air 08/05/16 14:15 72 16 145/79 100 Room Air 08/05/16 14:05 74 16 142/87 95 Room Air 08/05/16 10:12 71 18 139/76 96 08/05/16 10:00 36.5 69 20 137/71 97 Room Air 08/05/16 08:46 62 18 134/71 96 Room Air 08/05/16 07:46 68 18 127/75 95 Room Air 08/05/16 07:30 75 18 166/87 95 Room Air 08/05/16 07:07 75 18 162/94 97 Room Air 08/05/16 06:23 94 08/05/16 06:21 99 Room Air 08/05/16 06:15 36.5 94 20 177/96 99 Room Air Review Cardiovascular: regular rate, rhythm, no edema, no gallop, no JVD, no murmur Abdomen: normal bowel sounds, non tender, soft Lungs: chest non-tender, lungs clear, normal breath sounds Airway Class: II Pre-Sedation Airway Assessment Oral Cavity: Dental Abnormalities Able to Visualize Vocal Cords: Yes Short Thick Neck: No Hx of Sleep Apnea: No Smoking Status: Never Smoker Mallampati Classification: Class II ASA Classification: Class III Procedure Planning Contraindications-for Mod Sed: None Yes Notes The planned sedation has been discussed with the patient and consent obtained. I have identified the patient, determined the appropriateness of sedation and have assessed the patient immediately prior to the procedure. All medicine(s) and interventions are by my order.
--- NOTE | 2016-08-05 14:25 | Procedure Note ---
Post-Mod Sedation Assessment General Date of Moderate Sedation Aug 05, 2016. Vital Signs: Vital Signs Past 12 Hours Date Time Temp Pulse Resp B/P Pulse Ox O2 Delivery O2 Flow Rate FiO2 08/05/16 14:20 70 16 138/77 100 Room Air 08/05/16 14:15 72 16 145/79 100 Room Air 08/05/16 14:05 74 16 142/87 95 Room Air 08/05/16 10:12 71 18 139/76 96 08/05/16 10:00 36.5 69 20 137/71 97 Room Air 08/05/16 08:46 62 18 134/71 96 Room Air 08/05/16 07:46 68 18 127/75 95 Room Air 08/05/16 07:30 75 18 166/87 95 Room Air 08/05/16 07:07 75 18 162/94 97 Room Air 08/05/16 06:23 94 08/05/16 06:21 99 Room Air 08/05/16 06:15 36.5 94 20 177/96 99 Room Air Review - Discharge Criteria Vital Signs Stable: Yes Alert/Oriented/Conversant: Yes Returned to Baseline Mental St: Yes Nausea Absent/Minimal: Yes Pain/Discomfort/Absent/Minimal: Yes Normal/Baseline Respirations: Yes Active Bleeding?: N/A Pt Received D/C Instructions: N/A Prescriptions Given: None Specific Proced. D/C Criteria Distal Pulses Present (Cardiac: Yes Groin site assessed-Card Cath: Yes Voided Prior To Discharge: N/A Discharged Patients Adult Escort/Transportation: Yes
[2016-08-05] MEDS ORDERED: EPTIFIBATIDE INJ 75 MG PREMIXED IV SCH (14:30)
[2016-08-05] MEDS ORDERED: EPTIFIBATIDE BOLUS / DRIP IV ONE (14:30)
[2016-08-05] MEDS ORDERED: ATROPINE SULFATE 0.1 MG/ML 5ML SYR IV PRN (14:30)
--- NOTE | 2016-08-05 14:53 | Cardiac Catheterization ---
Procedure Note Procedure Date Aug 05, 2016. Pre-Procedure Diagnosis Non STEMI AUC Score 8 Post-Procedure Diagnosis Severe CAD, Successful PCI, Normal Intracardiac Pressures Procedure(s) Performed Coronary Angiography, Left Heart Cath, Drug Eluting Stent, IVUS Print [employer] Helper Dr. Singletary District Customs Director(s) Chris Estimated Blood Loss 20 Medication(s) Fentanyl, Heparin, Integrilin, Nicardipine, Nitroglycerin, Versed, Lidocaine 1% Ticagrelor 180 mg Summary of Findings Indication: High-risk NSTEMI Access: 6Fr Right Radial Artery Catheters: [place], JL3.5, EBU 3.5 guide Findings: LM - Short, luminal irregularities LAD - Moderate sized vessel, mildly calcified proximally with diffuse up to 60- 70% stenosis, 99% hazy stenosis in mid LAD just after take-off large septal, multiple sequential 40-50% focal lesions in mid and distal LAD before wraps around apex. High 1st diagonal small with diffuse severe disease. Circumflex - Dominant, large vessel, proximal-mid 50% diffuse stenosis at take- off of OM1. Mid, distal circumflex and PDA with minimal luminal irregularities. OM1 80% focal ostial stenosis and 80% mid focal stenosis. RCA - Small, non-dominant RCA with luminal irregularities. LVEDP - 2 Arterial Closure: TR Band PCI: Antithrombotic therapy: Heparin ACT >200, Integrilin, Ticagrelor Procedure: BMW wire passed through mid LAD lesion into distal LAD Proximal-mid LAD predilated with 2.5 x 12 Sprinter balloon IVUS assessment showed diffuse, mildly calcified disease extending back almost to the ostium of the LAD Prowater placed in distal circumflex to preserve vessel 3.0 x 33 Xience GRACIE placed from ostial of LAD to mid segment. IVUS showed stent placement just at the LAD ostium without struts in the left main. Stent under-expanded in the proximal to mid segments Stent Post-dilated with 3.5 NC TREK balloon to high atmospheres. Post completion of procedure stent well expanded with minimal residual stenosis and ALEXSANDRA 3 flow. Summary: 1. Severe 2 vessel coronary artery disease - Diffuse proximal LAD disease with 99% mid LAD stenosis with thrombus - 80% focal sequential lesions in moderate sized OM1 2. Normal intracardiac filling pressures 3. Successful PCI of proximal to mid LAD with 1 drug-eluting stent (Xience 3.0 x 33) post-dilated to 3.5 Recommendations: Return to ICU Trend Troponin until peak, obtain TTE Continue integrilin for 6 hours Loaded with Ticagrelor 180 in cath lab tech --> continue DAPT with ticagrelor/ASA for at least 1 year Start Beta-patrick, FABIÁN as BP allows Start High dose statin Cardiac Rehab on discharge No plans for further intervention on residual OM disease unless recurrent symptoms. Plan for stress test as an outpatient at some point to assess ischemia burden Hemodynamics Rest Ao: 106/58/80 Final Ao: 110/2 LV: 159/74/111 Recommendations PCI without planned CABG Specimens None Radiation Exposure (mGy) 2681 Contrast (mls) 200 Opti Fluids (cc crystalloids) 180 Drains None Anesthesia Moderate Procedural Complication(s) None Disposition ICU ACC Data Cardiac Status Clinical evaluation leading to the procedure CAD Presntation: Non STEMI Anginal Classification: CCS IV Heart Failure: No, NYHA Class: CCS I Cardiogenic Shock w/in 24Hrs: No Cardiac Arrest w/in 24Hrs: No Imaging studies past 6 months: No Stress studies past 6 months: No Standard Exercise Stress Test: No Stress Echocardiogram: No Stress Testing w/SPECT MPI: No Cardiac CTA: No Coronary Anatomy Dominant: Left Left Main (% Stenosis): Normal LAD (% Stenosis): Proximal (60-70), Mid (99), Distal (40-50) D1 (% Stenosis): Ostial (80) Circumflex (% Stenosis): Proximal OM1 (% Stenosis): Ostial (80), Mid (80) L PDA (% Stenosis): Normal RCA (% Stenosis): Normal Diagnostic Physician's Name: Marcelo Singletary MD Status: Urgent Closure Device Percutaneous Entry Location: Radial Closure Device: Radial Band Recommendations: PCI without planned CABG Lesion Segment Name: Proximal - Mid LAD Culprit Artery: Yes Stenosis Prior to Rx (%): 99 Chronic Total Occlusion: No IVUS: Yes FFR: No Ratio: less than or equal to 0.75% Pre-Procedure ALEXSANDRA Flow: 3 Previously Treated Lesion: No Lesion Complexity: High/C Lesion Length (mm): 25 Thrombus Present: Yes Guidewire Across Lesion: Yes Guidewire: Stenosis Post-Procedure (%): 0 Post-Procedure ALEXSANDRA Flow: 3 Device(s) Deployed: Yes Type of Device(s): Xience 3.0 x 33 GRACIE Intraprocedure Events Significant Dissection: No Perforation: No
[2016-08-05] MEDS ORDERED: PERFLUTREN LIPID MICROSPHERE (DEFINITY) IV ONE (16:03)
[2016-08-05 16:12] LABS: PARTIAL THROMBOPLASTIN RATIO > 11.0
[2016-08-05] MEDS: AMOXICILLIN/CLAVULANATE TAB 875 MG TAB PO SCH (16:56)
--- NOTE | 2016-08-05 16:56 | ECHOCARDIOGRAM REPORT ---
*NOTICE TO RECEIVING DEMOCRAT AGENCY This information is strictly Confidential and protected under [place] law. [place] law prohibits you from making any further disclosure of this information unless further disclosure is expressly permitted by the written consent of the person to whom it pertains or is authorized by law. A general authorization for the release of medical or other information is not sufficient for this purpose. Hospital accepts no responsibility if the information is made available to any other person, INCLUDING THE PATIENT. Interpretation Summary * Name: KURTIS CHAO Study Date: 08/05/2016 03:24 PM BP: 138/77 mmHg * Patient Location: .MSICU\S\E107\S\1 HR: 70 * : 1945 (M/d/yyy) Gender: Male Height: 68 in * Age: 71 yrs Ethnicity: [place] Weight: 147 lb * Ordering Physician: MD Marcelo Singletary MD * Performed By: Preeti Worrell * * Reason For Study: AMI * BSA: 1.8 m2 * -- Conclusions -- * 1. Normal LV size. Normal LV wall thickness. * 2. Normal LV systolic function. LVEF 55-60 %. Apical akinesis with moderate mid anterior, anteroseptal hypokinesis consistent with LAD disease. * 3. Normal RV size and function. * 4. No significant valvular pathology. * 5. No prior studies for comparison Procedure Details * A complete two-dimensional transthoracic echocardiogram was performed (2D, M-mode, Doppler and color flow Doppler). * A contrast injection of Definity was performed to improve assessment of LV function. * Contrast was injected into an intravenous site in the right arm. * One vial of Definity ultrasound contrast was diluted in normal saline to a total volume of 10 ml. A total of '3' ml of solution was administered during imaging. * Lot # [id number] of Definity utilized for procedure. * Expiration date 01/04. * The attending nurse who injected the contrast agent was ELVER FERNANDEZ RN. Left Ventricle * The left ventricle is grossly normal size. * There is normal left ventricular wall thickness. * Ejection Fraction = 55-60%. * There is apical akinesis. * Mid anterior, anteroseptal moderate hypokinesis Right Ventricle * The right ventricle is grossly normal size. * The right ventricular systolic function is normal as assessed by tricuspid annular plane systolic excursion (TAPSE) (normal >1.5 cm). Atria * The left atrial size is normal. * The right atrium is mildly dilated. * No ASD detected; PFO is not assessed. Mitral Valve * The mitral valve leaflets appear normal. There is no evidence of stenosis, fluttering, or prolapse. * Mitral stenosis is absent. * There is trace mitral regurgitation. Tricuspid Valve * The tricuspid valve is not well visualized. * There is no tricuspid stenosis. * There is trace tricuspid regurgitation. Aortic Valve * The aortic valve opens well. * The aortic valve is trileaflet. * No hemodynamically significant valvular aortic stenosis. * There is no significant aortic regurgitation. Pulmonic Valve * The pulmonary valve is inadequately visualized, but the Doppler data is adequate for interpretation. * There is no pulmonic valvular stenosis. * There is no pulmonic valvular regurgitation. Great Vessels * The aortic root and proximal ascending aorta are normal sized. Pericardium/Pleural * There is no pericardial effusion. Great Vessels * IVC < 2.1 cm, < 50% change with respiration. Estimated RA of 8 mmHg MMode 2D Measurements and Calculations IVSd 0.72 cm IVSs 0.97 cm LVIDd 4.2 cm LVIDs 2.9 cm LVPWd 0.80 cm LVPWs 1.9 cm IVS/LVPW 0.90 FS 31.7 % EDV(Teich) 79.5 ml ESV(Teich) 31.7 ml EF(Teich) 60.1 % EDV(cubed) 75.1 ml ESV(cubed) 23.9 ml EF(cubed) 68.2 % % IVS thick 33.8 % % LVPW thick 139.9 % LV mass(C)d 95.8 grams LV mass(C)dI 53.4 grams/m\S\2 LV mass(C)s 140.7 grams LV mass(C)sI 78.5 grams/m\S\2 CO(Teich) 3.5 l/min CI(Teich) 2.0 l/min/m\S\2 SV(Teich) 47.8 ml SI(Teich) 26.6 ml/m\S\2 CO(cubed) 3.8 l/min CI(cubed) 2.1 l/min/m\S\2 SV(cubed) 51.2 ml SI(cubed) 28.6 ml/m\S\2 ACS 1.8 cm asc Aorta Diam 3.2 cm LVOT diam 1.7 cm LVOT area 2.2 cm\S\2 LVAd ap4 32.2 cm\S\2 LVLd ap4 8.8 cm EDV(MOD-sp4) 97.0 ml LVAs ap4 18.4 cm\S\2 LVLs ap4 7.4 cm ESV(MOD-sp4) 37.0 ml EF(MOD-sp4) 61.9 % LVAd ap2 30.3 cm\S\2 LVLd ap2 8.5 cm EDV(MOD-sp2) 89.0 ml LVAs ap2 19.1 cm\S\2 LVLs ap2 7.4 cm ESV(MOD-sp2) 39.0 ml EF(MOD-sp2) 56.2 % CO(MOD-sp4) 4.4 l/min CI(MOD-sp4) 2.5 l/min/m\S\2 SV(MOD-sp4) 60.0 ml SI(MOD-sp4) 33.5 ml/m\S\2 CO(MOD-sp2) 3.7 l/min CI(MOD-sp2) 2.1 l/min/m\S\2 SV(MOD-sp2) 50.0 ml SI(MOD-sp2) 27.9 ml/m\S\2 Doppler Measurements and Calculations MV E max renay 105.6 cm/sec MV A max renay 81.9 cm/sec MV E/A 1.3 MV V2 max 115.2 cm/sec MV max PG 5.3 mmHg MV V2 mean 62.1 cm/sec MV mean PG 1.8 mmHg MV V2 VTI 36.1 cm MVA(VTI) 1.5 cm\S\2 MV dec time 0.17 sec Ao V2 max 115.2 cm/sec Ao max PG 5.3 mmHg Ao max PG (full) -0.51 mmHg LANDRY(V,A) 2.3 cm\S\2 LANDRY(V,D) 2.3 cm\S\2 LV V1 max PG 5.8 mmHg LV V1 mean PG 2.4 mmHg LV V1 max 120.7 cm/sec LV V1 mean 69.3 cm/sec LV V1 VTI 24.4 cm MR max renay 334.5 cm/sec MR max PG 44.8 mmHg SV(LVOT) 53.0 ml SI(LVOT) 29.6 ml/m\S\2 PA V2 max 99.2 cm/sec PA max PG 3.9 mmHg TR max renay 211.1 cm/sec
[2016-08-05 17:30] LABS: CKMB/CK RATIO 6.4 (0-3.0)
[2016-08-05] MEDS ORDERED: Integrelin infusion --> STOP ORDER ONE (20:00)
[2016-08-05] MEDS: TICAGRELOR 90 MG TAB PO SCH (20:48)
[2016-08-05] MEDS: METOPROLOL TARTRATE 25 MG TAB PO SCH (20:48)
--- NOTE | 2016-08-05 21:36 | Critical Care Consultation ---
Critical Care Consultation Date of Consultation: Aug 05, 2016. Attending Physician: Francisca Zuniga MD Reason for Consultation: Status post cardiac cath with drug eluting stent placement History of Present Illness Patient is a 71-year-old male who presented to the ED last night with a main complaint of bifrontal headache and mild chest pain. It was noted that the patient's initial troponin came back highly elevated at 45. Patient was started on a heparin drip and given Nitropaste for NSTEMI in addition to a frontal sinusitis. Patient is in the ICU for for further medical management following a cardiac catheterization. Family History Patient reports no known family medical history. Social History Smoking Status: Never Smoker Smokeless Tobacco Use: No Drug Use: none Marital Status: Housing Status: lives with significant other Occupation Status: retired Allergies Coded Allergies: No Known Allergies (Unverified , 08/05/16) Home Medications Scheduled Atenolol (Tenormin), 25 MG PO DAILY Cholecalciferol (Vitamin D), 1 TAB PO DAILY Cholecalciferol (Vitamin D), 1 TAB PO DAILY Cod Liver Oil (Cod Liver Oil), 1 PO DAILY Lutein-Zeaxanthin (Lutein), 1 CAP PO DAILY Lycopene (Lycopene), 1 CAP PO DAILY Multivitamin (Multivitamin), 1 TAB PO DAILY Pomegranate (Punica Granatum) (Pomegranate Extract), 1,000 MG PO DAILY Current Inpatient Medications Current Inpatient Medications Medications (Trade) Dose Ordered Sig/Rober Route Start Time Stop Time Status Last Admin Dose Admin Acetaminophen (Tylenol Tab) 650 mg Q4H PRN PO 08/05/16 08:45 09/04/16 08:44 08/05/16 18:03 650 MG Lorazepam (Ativan Tab) 0.5 mg Q4H PRN PO 08/05/16 08:45 09/04/16 08:44 08/05/16 12:00 0.5 MG Nitroglycerin (Nitrostat Tab) 0.4 mg UD PRN SL 08/05/16 08:45 09/04/16 08:44 Nitroglycerin (Nitroglycerin 2% Oint) 1 inch Q6H EXT 08/05/16 12:00 09/04/16 11:59 08/05/16 18:23 1 INCH Al Hydrox/Mg Hydrox/Simethicone (Maalox Max Susp) 15 ml Q4H PRN PO 08/05/16 08:45 09/04/16 08:44 Magnesium Hydroxide (Milk Of Magnesia Susp) 30 ml Q12H PRN PO 08/05/16 08:45 09/04/16 08:44 Ondansetron HCl (Zofran Inj) 4 mg Q6H PRN IV 08/05/16 08:45 09/04/16 08:44 Ranitidine HCl (zANTac TAB) 150 mg BID PO 08/05/16 09:00 09/04/16 08:59 08/05/16 20:49 150 MG Morphine Sulfate (MoRPHine SULFATE INJ) 2 mg Q2H PRN IV 08/05/16 08:45 08/19/16 08:44 Amoxicillin/ Clavulanate Potassium (Augmentin Tab) 875 mg BIDM PO 08/05/16 16:30 08/15/16 07:00 08/05/16 16:56 875 MG Sodium Chloride 2 sprays 2 sprays QID NA 08/05/16 13:00 09/04/16 12:59 08/05/16 20:47 2 SPRAYS Sodium Chloride (Nss 1000ml) 1,000 ml @ 125 mls/hr Q8H IV 08/05/16 14:30 08/05/16 22:29 08/05/16 14:44 125 MLS/HR Atropine Sulfate (Atropine Sulfate 0.1MG/Ml Inj) 0.5 mg ONE PRN IV 08/05/16 14:30 09/04/16 14:29 Atorvastatin Calcium (Lipitor Tab) 80 mg QAM PO 08/06/16 09:00 09/05/16 08:59 Metoprolol Tartrate (Lopressor Tab) 25 mg Q12 PO 08/05/16 21:00 09/04/16 20:59 08/05/16 20:48 25 MG Lisinopril (Zestril Tab) 5 mg QAM PO 08/06/16 09:00 09/05/16 08:59 Ticagrelor (Brilinta Cap) 90 mg BID PO 08/05/16 21:00 09/04/16 20:59 08/05/16 20:48 90 MG Aspirin (Ecotrin Tab) 81 mg QAM PO 08/06/16 09:00 09/05/16 08:59 Review of Systems A 10 point review of systems has been reviewed and is otherwise negative Constitutional: No chills, No fever ENT: + problem reported (nasal congestion) Cardiovascular: + chest pain Physical Exam Date Time Temp Pulse Resp B/P Pulse Ox O2 Delivery O2 Flow Rate FiO2 08/05/16 17:58 76 20 138/73 99 Room Air 08/05/16 17:44 71 14 143/68 99 Room Air 08/05/16 17:28 67 16 148/76 98 Room Air 08/05/16 16:33 76 13 130/93 99 Room Air 08/05/16 16:00 Room Air 08/05/16 15:58 36.6 75 12 148/78 99 Room Air 08/05/16 15:48 71 20 146/80 99 Room Air 08/05/16 15:38 71 11 141/75 99 Room Air 08/05/16 15:28 73 15 143/77 99 Room Air 08/05/16 15:18 73 15 146/71 99 Room Air 08/05/16 15:08 67 18 143/69 100 Room Air 08/05/16 15:00 65 18 130/78 98 Room Air 08/05/16 14:58 69 19 130/78 98 Room Air 08/05/16 14:50 68 146/73 99 08/05/16 14:48 71 13 146/73 99 Room Air 08/05/16 14:40 69 18 137/85 99 Room Air 08/05/16 14:38 70 16 137/85 98 Room Air 08/05/16 14:30 67 18 143/73 99 Room Air 08/05/16 14:29 68 16 138/90 100 Room Air 08/05/16 14:28 66 13 143/73 99 Room Air 08/05/16 14:20 70 16 138/77 100 Room Air 08/05/16 14:15 72 16 145/79 100 Room Air 08/05/16 14:05 74 16 142/87 95 Room Air 08/05/16 12:00 Room Air 08/05/16 10:12 71 18 139/76 96 08/05/16 10:00 36.5 69 20 137/71 97 Room Air 08/05/16 08:46 62 18 134/71 96 Room Air 08/05/16 07:46 68 18 127/75 95 Room Air 08/05/16 07:30 75 18 166/87 95 Room Air 08/05/16 07:07 75 18 162/94 97 Room Air 08/05/16 06:23 94 08/05/16 06:21 99 Room Air 08/05/16 06:15 36.5 94 20 177/96 99 Room Air General Appearance: well-appearing, no apparent distress Head: normocephalic, atraumatic Eyes: PERRLA, pupils unequal ENT: normal mouth exam, normal throat exam Neck: normal range of motion, no tenderness, trachea midline, no stridor Respiratory: breath sounds normal, clear to auscultation, clear to percussion Cardiovasular: regular rate/rhythm, normal S1S2, no M/G/R Abdomen: non tender, normal bowel sounds, no rebound Back: normal inspection Upper Extremities: no edema Lower Extremities: no edema Neuro: alert, oriented x 3 Laboratory Results Last 24 Hours Test 08/05/16 06:25 08/05/16 06:35 08/05/16 07:06 08/05/16 09:36 White Blood Count 7.41 K/uL Red Blood Count 4.22 M/uL Hemoglobin 13.4 g/dL Hematocrit 38.4 % Mean Corpuscular Volume 91.0 fL Mean Corpuscular Hemoglobin 31.8 pg Mean Corpuscular Hemoglobin Concent 34.9 g/dl Platelet Count 226 K/uL Mean Platelet Volume 10.5 fL Neutrophils (%) (Auto) 73.2 % Lymphocytes (%) (Auto) 16.2 % Monocytes (%) (Auto) 9.7 % Eosinophils (%) (Auto) 0.8 % Basophils (%) (Auto) 0.1 % Neutrophils # (Auto) 5.42 K/uL Lymphocytes # (Auto) 1.20 K/uL Monocytes # (Auto) 0.72 K/uL Eosinophils # (Auto) 0.06 K/uL Basophils # (Auto) 0.01 K/uL RDW Standard Deviation 42.8 fL RDW Coefficient of Variation 12.9 % Immature Granulocyte % (Auto) 0.0 % Immature Granulocyte # (Auto) 0.00 K/uL Prothrombin Time 10.7 SECONDS Prothromb Time International Ratio 1.0 Activated Partial Thromboplast Time 26.0 SECONDS Partial Thromboplastin Ratio 1.0 D-Dimer 230 ug/L FEU Sodium Level 140 mmol/L Potassium Level 3.8 mmol/L Chloride Level 104 mmol/L Carbon Dioxide Level 26 mmol/L Anion Gap 10.0 mmol/L Blood Urea Nitrogen 18 mg/dl Creatinine 0.88 mg/dl Est Creatinine Clear Calc Drug Dose 72.3 ml/min Estimated GFR () 98.8 Estimated GFR (Non- 85.2 BUN/Creatinine Ratio 20.8 Random Glucose 145 mg/dl Calcium Level 9.2 mg/dl Phosphorus Level 2.5 mg/dl Magnesium Level 2.0 mg/dl Total Bilirubin 0.5 mg/dl Aspartate Amino Transf (AST/SGOT) 228 U/L Alanine Aminotransferase (ALT/SGPT) 82 U/L Alkaline Phosphatase 71 U/L Total Creatine Kinase 1738 U/L 1867 U/L Creatine Kinase MB 124.5 ng/ml 127.1 ng/ml Creatine Kinase MB Ratio 7.2 6.8 Troponin I 45.500 ng/ml 65.300 ng/ml Total Protein 7.9 gm/dl Albumin 4.3 gm/dl Globulin 3.6 gm/dl Albumin/Globulin Ratio 1.2 Triglycerides Level 86 mg/dl Cholesterol Level 240 mg/dl HDL Cholesterol 93 mg/dl LDL Cholesterol, Calculated 130 mg/dl VLDL Cholesterol, Calculated 17 mg/dl Cholesterol/HDL Ratio 2.6 Estimated Average Glucose 108 mg/dl Hemoglobin A1c 5.4 % Bedside Troponin I 28.390 ng/ml Test 08/05/16 13:04 08/05/16 13:30 08/05/16 14:39 08/05/16 16:32 Kaolin Activated Coagulation Time 152 SECONDS 219 SECONDS Activated Partial Thromboplast Time > 300.0 SECONDS Partial Thromboplastin Ratio > 11.0 Total Creatine Kinase 2146 U/L Creatine Kinase MB 136.9 ng/ml Creatine Kinase MB Ratio 6.4 Troponin I 96.300 ng/ml Test 08/05/16 21:05 Bedside Glucose 103 mg/dl Diagnostic Results Cardiac catheterization report dated 08/05/2016 was reviewed. Initial chest x-ray dated 08/05/[address] head report 08/05/2016 reviewed as well as independently reviewed the images Assessment & Plan (1) Acute myocardial infarction Status post stent to the LAD, drug-eluting Echo report reviewed Integrilin for 6 hours Antiplatelet therapy Start beta patrick Start Steve inhibitor Start statin (2) Sinusitis, acute frontal On Augmentin, 875 mg twice a day (3) Sinusitis, acute ethmoidal (4) Non-STEMI (non-ST elevated myocardial infarction) (5) Hypertension Beta patrick and STEVE inhibitor
[2016-08-06] VITALS (13 sets, daily range): BP systolic 86–137; BP diastolic 50–75; PULSE 66–86; TEMP 36.7–38.8; O2SAT 95–99
[2016-08-06] MEDS: NITROGLYCERIN OINT 2% 1GM PACKET EXT SCH ×3 (00:17→12:00)
[2016-08-06 01:34] LABS: CKMB/CK RATIO 5.3 (0-3.0)
[2016-08-06 05:37] LABS: BASO % 0.1 %; BASO ABS # 0.01 K/uL (0-0.2); COMPLETE YES; EOS % 0.6 %; HEMATOCRIT 33.5 % (42-52); IG% 0.1 %; LYMPH % 10.2 %; MEAN CELL VOLUME 91.5 fL (80-100); MEAN CORPUSCULAR HGB CONC 34.9 g/dl (32-36); MEAN PLATELET VOLUME 10.4 fL (7.4-10.4); MONO % 19.5 %; NEUT % 69.5 %; PLATELET COUNT 169 K/uL (130-400); RED BLOOD COUNT 3.66 M/uL (4.7-6.1); WHITE BLOOD COUNT 7.86 K/uL (4.8-10.8)
[2016-08-06 06:20] LABS: BUN/CREATININE RATIO 15.8 (10-20); CALCIUM 8.5 mg/dl (8.5-10.1); CREATININE 0.73 mg/dl (0.60-1.40); MAGNESIUM 1.9 mg/dl (1.8-2.4); PHOSPHORUS 2.5 mg/dl (2.5-4.9); POTASSIUM 3.8 mmol/L (3.5-5.1)
[2016-08-06] MEDS ORDERED: LSN5 PO (07:55)
[2016-08-06] MEDS ORDERED: ATOR-26 PO (07:55)
[2016-08-06] MEDS ORDERED: ASPEC81 PO (07:55)
[2016-08-06] MEDS ORDERED: AMOX1TAB43 PO (07:55)
[2016-08-06] MEDS ORDERED: NTRSLP4 SL (07:55)
[2016-08-06] MEDS ORDERED: BRL90 PO (07:55)
[2016-08-06] MEDS ORDERED: LPR25 PO (07:55)
--- NOTE | 2016-08-06 07:58 | Discharge Instructions ---
Discharge Instructions Admission Admission Date: Aug 05, 2016 at 08:43 Admission Diagnosis: Chest Pain. Care Plan - Goal(s): Improve function Care Plan - Instructions: Activity Recommendations: no limitations Recommended Home Diet: 1800 Antonio Wt Reduction Provider Instructions: Activation of Emergency Medical System: Call 911, immediately, if you experience any of the following: Warning Signs and Symptoms of a Heart Attack: * Chest pain that is not relieved by medication * Shortness of breath Otherwise, call your doctor immediately if you have: * Lightheadedness, dizziness, or fainting * Feeling of irregular heartbeat or fast pulse Home Care: * Take your medications exactly as directed. Don't skip doses. * Remember that recovery after a heart attack takes time. Plan to rest for at lease 4-8 weeks while you recover. Then return to normal activity when your doctor says it's okay. * Ask your doctor about joining a heart rehabilitation program. * Tell your doctor if you are feeling depressed. Feelings of sadness are common after a heart attack, but it is important that you speak to someone if you are feeling overwhelmed by these feelings. * If you are having chest pain, call 911 for an ambulance. Do NOT drive yourself to the hospital. * Ask your family members to learn CPR. * Learn to take your own blood pressure and pulse. Keep a record of your results. Ask your doctor when you should seek emergency medical attention. He or she will tell you which blood pressure reading is dangerous. Lifestyle Changes: * Maintain a healthy weight. Get help to lose any extra pounds. * Cut back on salt. 1. Limit canned, dried, packaged, and fast foods. 2. Don't add salt to your food. 3. Season foods with herbs instead of salt when you cook. * Break the smoking habit. Enroll in a stop-smoking program to improve your chances of success. * Limit fatty foods. * Check your lipid levels regularly. (Your doctor can show you how to do this. ) * Build up your activity according to your doctor's recommendation. * Ask your doctor when it's okay to resume sexual activity. * Tell your doctor about any erectile dysfunction (ED) medication you are taking. Some ED medications are not safe if you take certain heart medications. * Try to manage stress. Follow Up: It is important for you to keep your follow up appointments with your medical provider. VTE Core Measures Inpt VTE Proph given/why not?: Unfractionated heparin SQ AMI Core Measures Reason no ASA as I/P: Treatment provided - N/A Reason no ASA at D/C: Treatment provided - N/A Reason no statin as I/P: Treatment provided - N/A Reason no statin at D/C: Treatment provided - N/A Follow Up Follow-Up: follow up with Stroke Program Coordinator in 2 weeks, Dr. Singletary Follow up with primary physician in 2 weeks, started on new medications (lipitor , lisinopril) will need liver function test and renal function test Laboratory Results Test Results: Hemoglobin A1c Test 08/05/16 06:35 Range/Units Estimated Average Glucose 108 mg/dl Hemoglobin A1c 5.4 4.5-5.6 % Lipid Panel Test 08/05/16 06:25 Range/Units Triglycerides Level 86 0-150 mg/dl Cholesterol Level 240 H 0-200 mg/dl HDL Cholesterol 93 mg/dl Cholesterol/HDL Ratio 2.6 LDL Cholesterol, Calculated 130 mg/dl Saumya Felton Recommendations: Call your doctor if: * Temperature above 101 degrees * Pain not relieved by pain medicine ordered * There is increased drainage or redness from any incision * You have any unanswered questions or concerns. Your Doctors Instructions noted above were prepared by provider Francisca Castaneda.
[2016-08-06] MEDS: ATORVASTATIN 40 MG TAB PO SCH (07:59)
[2016-08-06] MEDS: ASPIRIN 81 MG ECTAB PO SCH (08:00)
[2016-08-06] MEDS: AMOXICILLIN/CLAVULANATE TAB 875 MG TAB PO SCH ×2 (08:00→16:54)
[2016-08-06] MEDS: METOPROLOL TARTRATE 25 MG TAB PO SCH ×2 (08:00→21:32)
[2016-08-06] MEDS: LISINOPRIL 5 MG TAB PO SCH (08:00)
[2016-08-06] MEDS: RANITIDINE HCL 150 MG TAB PO SCH ×2 (08:00→21:33)
--- NOTE | 2016-08-06 08:13 | Progress Note ---
Subjective Date of Service: Aug 06, 2016. Subjective Pt evaluation today including: conversation w/ patient, physical exam, chart review, lab review Voiding: no voiding problems Problem List Medical Problems: (1) Acute bacterial sinusitis Status: Acute (2) Acute myocardial infarction Status: Acute (3) Hypertension Status: Chronic (4) Non-STEMI (non-ST elevated myocardial infarction) Status: Acute (5) Sinusitis Status: Acute Review of Systems Constitutional: No fever Eyes: No worsening of vision ENT: No hearing loss, No unusual epistaxis Cardiac: No chest pain Abdomen: No pain Musculoskeletal: No joint pain Psychiatric: No depression symptoms Skin: No rash Medications Current Inpatient Medications Medications (Trade) Dose Ordered Sig/Rober Route Start Time Stop Time Status Last Admin Dose Admin Acetaminophen (Tylenol Tab) 650 mg Q4H PRN PO 08/05/16 08:45 09/04/16 08:44 08/05/16 18:03 650 MG Lorazepam (Ativan Tab) 0.5 mg Q4H PRN PO 08/05/16 08:45 09/04/16 08:44 08/05/16 22:04 0.5 MG Nitroglycerin (Nitrostat Tab) 0.4 mg UD PRN SL 08/05/16 08:45 09/04/16 08:44 Nitroglycerin (Nitroglycerin 2% Oint) 1 inch Q6H EXT 08/05/16 12:00 09/04/16 11:59 08/06/16 05:36 1 INCH Al Hydrox/Mg Hydrox/Simethicone (Maalox Max Susp) 15 ml Q4H PRN PO 08/05/16 08:45 09/04/16 08:44 Magnesium Hydroxide (Milk Of Magnesia Susp) 30 ml Q12H PRN PO 08/05/16 08:45 09/04/16 08:44 Ondansetron HCl (Zofran Inj) 4 mg Q6H PRN IV 08/05/16 08:45 09/04/16 08:44 Ranitidine HCl (zANTac TAB) 150 mg BID PO 08/05/16 09:00 09/04/16 08:59 08/05/16 20:49 150 MG Morphine Sulfate (MoRPHine SULFATE INJ) 2 mg Q2H PRN IV 08/05/16 08:45 08/19/16 08:44 Amoxicillin/ Clavulanate Potassium (Augmentin Tab) 875 mg BIDM PO 08/05/16 16:30 08/15/16 07:00 08/05/16 16:56 875 MG Sodium Chloride ([place] Nasal [place]) 2 sprays QID NA 08/05/16 13:00 09/04/16 12:59 08/05/16 20:47 2 SPRAYS Atropine Sulfate (Atropine Sulfate 0.1MG/Ml Inj) 0.5 mg ONE PRN IV 08/05/16 14:30 09/04/16 14:29 Atorvastatin Calcium (Lipitor Tab) 80 mg QAM PO 08/06/16 09:00 09/05/16 08:59 Metoprolol Tartrate (Lopressor Tab) 25 mg Q12 PO 08/05/16 21:00 09/04/16 20:59 08/05/16 20:48 25 MG Lisinopril (Zestril Tab) 5 mg QAM PO 08/06/16 09:00 09/05/16 08:59 Ticagrelor (Brilinta Cap) 90 mg BID PO 08/05/16 21:00 09/04/16 20:59 08/05/16 20:48 90 MG Aspirin (Ecotrin Tab) 81 mg QAM PO 08/06/16 09:00 09/05/16 08:59 Objective Vital Signs Date Time Temp Pulse Resp B/P Pulse Ox O2 Delivery O2 Flow Rate FiO2 08/06/16 06:00 66 15 124/75 98 Room Air 08/06/16 04:00 37.5 76 19 137/74 95 Room Air 08/06/16 04:00 98 Room Air 08/06/16 02:22 78 20 125/69 99 Room Air 08/06/16 00:01 37.3 15 118/63 96 Room Air 08/05/16 23:59 97 Room Air 08/05/16 22:00 74 13 124/66 97 Room Air 08/05/16 21:00 75 20 124/70 97 Room Air 08/05/16 20:00 98 Room Air 08/05/16 20:00 37.7 78 18 133/71 99 Room Air 08/05/16 17:58 76 20 138/73 99 Room Air 08/05/16 17:44 71 14 143/68 99 Room Air 08/05/16 17:28 67 16 148/76 98 Room Air 08/05/16 16:33 76 13 130/93 99 Room Air 08/05/16 16:00 Room Air 08/05/16 15:58 36.6 75 12 148/78 99 Room Air 08/05/16 15:48 71 20 146/80 99 Room Air 08/05/16 15:38 71 11 141/75 99 Room Air 08/05/16 15:28 73 15 143/77 99 Room Air 08/05/16 15:18 73 15 146/71 99 Room Air 08/05/16 15:08 67 18 143/69 100 Room Air 08/05/16 15:00 65 18 130/78 98 Room Air 08/05/16 14:58 69 19 130/78 98 Room Air 08/05/16 14:50 68 146/73 99 08/05/16 14:48 71 13 146/73 99 Room Air 08/05/16 14:40 69 18 137/85 99 Room Air 08/05/16 14:38 70 16 137/85 98 Room Air 08/05/16 14:30 67 18 143/73 99 Room Air 08/05/16 14:29 68 16 138/90 100 Room Air 08/05/16 14:28 66 13 143/73 99 Room Air 08/05/16 14:20 70 16 138/77 100 Room Air 08/05/16 14:15 72 16 145/79 100 Room Air 08/05/16 14:05 74 16 142/87 95 Room Air 08/05/16 12:00 Room Air 08/05/16 10:12 71 18 139/76 96 08/05/16 10:00 36.5 69 20 137/71 97 Room Air 08/05/16 08:46 62 18 134/71 96 Room Air Physical Exam General Appearance: WD/WN, no apparent distress Eyes: normal inspection, PERRL, EOMI ENT: normal ENT inspection, hearing grossly normal Neck: supple Respiratory/Chest: chest non-tender, lungs clear, normal breath sounds, no respiratory distress, no accessory muscle use Cardiovascular: regular rate, rhythm, no edema, no gallop, no JVD, no murmur Abdomen: normal bowel sounds, non tender, soft, no organomegaly Extremities: normal range of motion, non-tender, normal inspection, no pedal edema Neurologic/Psychiatric: bill checker II-XII nml as tested, no motor/sensory deficits, alert, normal mood/affect, oriented x 3 Skin: normal color, warm/dry, no rash Laboratory Results Last 24 Hours Test 08/05/16 09:36 08/05/16 13:04 08/05/16 13:30 08/05/16 14:39 Total Creatine Kinase 1867 U/L Creatine Kinase MB 127.1 ng/ml Creatine Kinase MB Ratio 6.8 Troponin I 65.300 ng/ml Kaolin Activated Coagulation Time 152 SECONDS 219 SECONDS Activated Partial Thromboplast Time > 300.0 SECONDS Partial Thromboplastin Ratio > 11.0 Test 08/05/16 16:32 08/05/16 21:05 08/06/16 00:39 08/06/16 05:10 Total Creatine Kinase 2146 U/L 1979 U/L Creatine Kinase MB 136.9 ng/ml 104.4 ng/ml Creatine Kinase MB Ratio 6.4 5.3 Troponin I 96.300 ng/ml 61.000 ng/ml Bedside Glucose 103 mg/dl White Blood Count 7.86 K/uL Red Blood Count 3.66 M/uL Hemoglobin 11.7 g/dL Hematocrit 33.5 % Mean Corpuscular Volume 91.5 fL Mean Corpuscular Hemoglobin 32.0 pg Mean Corpuscular Hemoglobin Concent 34.9 g/dl Platelet Count 169 K/uL Mean Platelet Volume 10.4 fL Neutrophils (%) (Auto) 69.5 % Lymphocytes (%) (Auto) 10.2 % Monocytes (%) (Auto) 19.5 % Eosinophils (%) (Auto) 0.6 % Basophils (%) (Auto) 0.1 % Neutrophils # (Auto) 5.46 K/uL Lymphocytes # (Auto) 0.80 K/uL Monocytes # (Auto) 1.53 K/uL Eosinophils # (Auto) 0.05 K/uL Basophils # (Auto) 0.01 K/uL RDW Standard Deviation 43.7 fL RDW Coefficient of Variation 13.0 % Immature Granulocyte % (Auto) 0.1 % Immature Granulocyte # (Auto) 0.01 K/uL Activated Partial Thromboplast Time 25.7 SECONDS Partial Thromboplastin Ratio 1.0 Sodium Level 140 mmol/L Potassium Level 3.8 mmol/L Chloride Level 104 mmol/L Carbon Dioxide Level 28 mmol/L Anion Gap 8.0 mmol/L Blood Urea Nitrogen 12 mg/dl Creatinine 0.73 mg/dl Est Creatinine Clear Calc Drug Dose 87.2 ml/min Estimated GFR () 106.7 Estimated GFR (Non- 92.0 BUN/Creatinine Ratio 15.8 Random Glucose 113 mg/dl Calcium Level 8.5 mg/dl Phosphorus Level 2.5 mg/dl Magnesium Level 1.9 mg/dl Total Bilirubin 0.7 mg/dl Direct Bilirubin 0.2 mg/dl Aspartate Amino Transf (AST/SGOT) 261 U/L Alanine Aminotransferase (ALT/SGPT) 78 U/L Alkaline Phosphatase 52 U/L Total Protein 6.3 gm/dl Albumin 3.4 gm/dl Assessment and Plan NSTEMI HTN Acute Sinusitis Plan: Admit to ICU Consult dress draper appreciated S/P cardiac cath; Summary: 1. Severe 2 vessel coronary artery disease - Diffuse proximal LAD disease with 99% mid LAD stenosis with thrombus - 80% focal sequential lesions in moderate sized OM1 2. Normal intracardiac filling pressures 3. Successful PCI of proximal to mid LAD with 1 drug-eluting stent (Xience 3.0 x 33) post-dilated to 3.5 2D echo showed EF of 60% with some hypokinesia, consistent with LAD disease serial cardiac enz Heparin drip Aspirin / Brilinta BP meds changed to metoprolol 25mg po BID/Lisinopril, instructed to check renal function in 2 weeks LDL is 130, lipitor 80mg po daily was added NTG SL prn pain Home meds (atenolol 25mg) HgbA1C was 5.4
[2016-08-06] MEDS: SODIUM CHLORIDE 0.65% NA SOLN 45 ML (OCEAN) SCH ×4 (08:28→21:31)
--- NOTE | 2016-08-06 08:54 | Critical Care Progress Note ---
Critical Care Progress Note Date of Service Aug 06, 2016. Attending Dr. Olivares Subjective This patient is a 71-year-old male who presented with chest pain on Friday evening. His troponin were positive, peaking at 96.3. He was taken to [facility] and received 1 drug eluting stent to the mid LAD on August 05. ECHO this admission demonstrates an EF of 55-60%; with apical akinesis with moderate mid anterior, anterior septal hypokinesis consistent with LAD disease. Remainder of the echo was within normal limits. His TR band has been since removed without complication. He had no acute events overnight. He states he does not currently feel back to normal he is much improved. He has not had a bowel movement since admission; states his last one was Friday evening (approximately 48 hours ago). He does state that he is passing lots of gas. His stool and a bit her shock that he has had a heart attack.He is eating breakfast this morning when I came in, he is not sure if he is hungry but was willing to try to eat. He denies fever, chills, sweats, chest pain/pressure, shortness of breath, cough. He denies abdominal pain, Nausea/vomiting. He has a urinal at bedside which is empty; he denies any burning/irritation or other troubles using urinal. He denies numbness and tingling or lightheadedness with movement. Objective Vital Signs - as noted Laboratory Data - as noted Physical Exam: General - NAD, eating breakfast in the dark Eyes - PERRL, EOMI No icterus, gaze conjugate ENT - Mucosa moist, no lesions or candidiasis Lungs - No paradoxical chest wall movement, clear to auscultation bilaterally, no wheezes, rales, or rhonchi Heart - NSR, No murmur, rubs, clicks, or gallops appreciated Abdomen - BS present, no bruits noted, tympanic to percussion, soft, nontender, nondistended, no organomegaly Extremities - No edema, pedal pulses intact Neuro - A&OX4 Strength extremities equal and appropriate bilaterally CN:PERRL, EOMI, no facial asymmetry, uvula/tongue midline Assessment & Plan (1) Acute myocardial infarction S/P stent to the mid LAD, drug-eluting Troponin trending down; peaked 96.3 Echo report reviewed: EF 55-60%, with apical akinesis with moderate mid anterior, anterior septal hypokinesis consistent with LAD disease. Remainder of the echo was within normal limits Integrilin for 6 hours: Reached stop time Cardiology recommendations per Dr. Singletary: Begin high-dose statin and an FABIÁN inhibitor. Wean off Nitropaste, as tolerated Continue Brilinta 90mg BID Continue Lopressor 25 mg every 12 (2) Non-STEMI (non-ST elevated myocardial infarction) As above (3) Sinusitis, acute frontal No complaint of pain today Continue Augmentin, 875 mg twice a day (first day of therapy August 05; 10 days ) (4) Sinusitis, acute ethmoidal No complaint of pain today Continue Augmentin, 875 mg twice a day (first day of therapy August 05; 10 days ) (5) Hypertension SBP 124 Continue Lopressor 25 mg every 12 Patient to begin FABIÁN inhibitor; per cardiology Access: 18-gauge R A.C. GI: Continue Zantac 150mg CCT: 0 minutes, level II inpatient billing. Not including any billable procedures. Thank you for including us in the care of this patient, please review Dr. Frank Olivares's addendum for further recommendations. I have personally evaluated and examined this patient. I agree with assessment and plan of Mere Sainz for transfer off ICU level care Data Medications: Current Inpatient Medications Medications (Trade) Dose Ordered Sig/Rober Route Start Time Stop Time Status Last Admin Dose Admin Acetaminophen (Tylenol Tab) 650 mg Q4H PRN PO 08/05/16 08:45 09/04/16 08:44 08/05/16 18:03 650 MG Lorazepam (Ativan Tab) 0.5 mg Q4H PRN PO 08/05/16 08:45 09/04/16 08:44 08/05/16 22:04 0.5 MG Nitroglycerin (Nitrostat Tab) 0.4 mg UD PRN SL 08/05/16 08:45 09/04/16 08:44 Nitroglycerin (Nitroglycerin 2% Oint) 1 inch Q6H EXT 08/05/16 12:00 09/04/16 11:59 08/06/16 05:36 1 INCH Al Hydrox/Mg Hydrox/Simethicone (Maalox Max Susp) 15 ml Q4H PRN PO 08/05/16 08:45 09/04/16 08:44 Magnesium Hydroxide (Milk Of Magnesia Susp) 30 ml Q12H PRN PO 08/05/16 08:45 09/04/16 08:44 Ondansetron HCl (Zofran Inj) 4 mg Q6H PRN IV 08/05/16 08:45 09/04/16 08:44 Ranitidine HCl (zANTac TAB) 150 mg BID PO 08/05/16 09:00 09/04/16 08:59 08/06/16 08:00 150 MG Morphine Sulfate (MoRPHine SULFATE INJ) 2 mg Q2H PRN IV 08/05/16 08:45 08/19/16 08:44 Amoxicillin/ Clavulanate Potassium (Augmentin Tab) 875 mg BIDM PO 08/05/16 16:30 08/15/16 07:00 08/06/16 08:00 875 MG Sodium Chloride ([place] Nasal [place]) 2 sprays QID NA 08/05/16 13:00 09/04/16 12:59 08/06/16 08:28 2 SPRAYS Atropine Sulfate (Atropine Sulfate 0.1MG/Ml Inj) 0.5 mg ONE PRN IV 08/05/16 14:30 09/04/16 14:29 Atorvastatin Calcium (Lipitor Tab) 80 mg QAM PO 08/06/16 09:00 09/05/16 08:59 08/06/16 07:59 80 MG Metoprolol Tartrate (Lopressor Tab) 25 mg Q12 PO 08/05/16 21:00 09/04/16 20:59 08/06/16 08:00 25 MG Lisinopril (Zestril Tab) 5 mg QAM PO 08/06/16 09:00 09/05/16 08:59 08/06/16 08:00 5 MG Ticagrelor (Brilinta Cap) 90 mg BID PO 08/05/16 21:00 09/04/16 20:59 08/05/16 20:48 90 MG Aspirin (Ecotrin Tab) 81 mg QAM PO 08/06/16 09:00 09/05/16 08:59 08/06/16 08:00 81 MG I & O: 24-Hour Column 08/06/16 08:00 Intake Total 1747 ml Output Total 1925 ml Balance -178 ml Vital Signs: Date Time Temp Pulse Resp B/P Pulse Ox O2 Delivery O2 Flow Rate FiO2 08/06/16 06:00 66 15 124/75 98 Room Air 08/06/16 04:00 37.5 76 19 137/74 95 Room Air 08/06/16 04:00 98 Room Air 08/06/16 02:22 78 20 125/69 99 Room Air 08/06/16 00:01 37.3 15 118/63 96 Room Air 08/05/16 23:59 97 Room Air 08/05/16 22:00 74 13 124/66 97 Room Air 08/05/16 21:00 75 20 124/70 97 Room Air 08/05/16 20:00 98 Room Air 08/05/16 20:00 37.7 78 18 133/71 99 Room Air 08/05/16 17:58 76 20 138/73 99 Room Air 08/05/16 17:44 71 14 143/68 99 Room Air 08/05/16 17:28 67 16 148/76 98 Room Air 08/05/16 16:33 76 13 130/93 99 Room Air 08/05/16 16:00 Room Air 08/05/16 15:58 36.6 75 12 148/78 99 Room Air 08/05/16 15:48 71 20 146/80 99 Room Air 08/05/16 15:38 71 11 141/75 99 Room Air 08/05/16 15:28 73 15 143/77 99 Room Air 08/05/16 15:18 73 15 146/71 99 Room Air 08/05/16 15:08 67 18 143/69 100 Room Air 08/05/16 15:00 65 18 130/78 98 Room Air 08/05/16 14:58 69 19 130/78 98 Room Air 08/05/16 14:50 68 146/73 99 08/05/16 14:48 71 13 146/73 99 Room Air 08/05/16 14:40 69 18 137/85 99 Room Air 08/05/16 14:38 70 16 137/85 98 Room Air 08/05/16 14:30 67 18 143/73 99 Room Air 08/05/16 14:29 68 16 138/90 100 Room Air 08/05/16 14:28 66 13 143/73 99 Room Air 08/05/16 14:20 70 16 138/77 100 Room Air 08/05/16 14:15 72 16 145/79 100 Room Air 08/05/16 14:05 74 16 142/87 95 Room Air 08/05/16 12:00 Room Air 08/05/16 10:12 71 18 139/76 96 08/05/16 10:00 36.5 69 20 137/71 97 Room Air 08/05/16 08:46 62 18 134/71 96 Room Air Laboratory Results: Last 24 Hours Test 08/05/16 09:36 08/05/16 13:04 08/05/16 13:30 08/05/16 14:39 Total Creatine Kinase 1867 U/L Creatine Kinase MB 127.1 ng/ml Creatine Kinase MB Ratio 6.8 Troponin I 65.300 ng/ml Kaolin Activated Coagulation Time 152 SECONDS 219 SECONDS Activated Partial Thromboplast Time > 300.0 SECONDS Partial Thromboplastin Ratio > 11.0 Test 08/05/16 16:32 08/05/16 21:05 08/06/16 00:39 08/06/16 05:10 Total Creatine Kinase 2146 U/L 1979 U/L Creatine Kinase MB 136.9 ng/ml 104.4 ng/ml Creatine Kinase MB Ratio 6.4 5.3 Troponin I 96.300 ng/ml 61.000 ng/ml Bedside Glucose 103 mg/dl White Blood Count 7.86 K/uL Red Blood Count 3.66 M/uL Hemoglobin 11.7 g/dL Hematocrit 33.5 % Mean Corpuscular Volume 91.5 fL Mean Corpuscular Hemoglobin 32.0 pg Mean Corpuscular Hemoglobin Concent 34.9 g/dl Platelet Count 169 K/uL Mean Platelet Volume 10.4 fL Neutrophils (%) (Auto) 69.5 % Lymphocytes (%) (Auto) 10.2 % Monocytes (%) (Auto) 19.5 % Eosinophils (%) (Auto) 0.6 % Basophils (%) (Auto) 0.1 % Neutrophils # (Auto) 5.46 K/uL Lymphocytes # (Auto) 0.80 K/uL Monocytes # (Auto) 1.53 K/uL Eosinophils # (Auto) 0.05 K/uL Basophils # (Auto) 0.01 K/uL RDW Standard Deviation 43.7 fL RDW Coefficient of Variation 13.0 % Immature Granulocyte % (Auto) 0.1 % Immature Granulocyte # (Auto) 0.01 K/uL Activated Partial Thromboplast Time 25.7 SECONDS Partial Thromboplastin Ratio 1.0 Sodium Level 140 mmol/L Potassium Level 3.8 mmol/L Chloride Level 104 mmol/L Carbon Dioxide Level 28 mmol/L Anion Gap 8.0 mmol/L Blood Urea Nitrogen 12 mg/dl Creatinine 0.73 mg/dl Est Creatinine Clear Calc Drug Dose 87.2 ml/min Estimated GFR () 106.7 Estimated GFR (Non- 92.0 BUN/Creatinine Ratio 15.8 Random Glucose 113 mg/dl Calcium Level 8.5 mg/dl Phosphorus Level 2.5 mg/dl Magnesium Level 1.9 mg/dl Total Bilirubin 0.7 mg/dl Direct Bilirubin 0.2 mg/dl Aspartate Amino Transf (AST/SGOT) 261 U/L Alanine Aminotransferase (ALT/SGPT) 78 U/L Alkaline Phosphatase 52 U/L Total Protein 6.3 gm/dl Albumin 3.4 gm/dl
[2016-08-06] MEDS ORDERED: ASPIRIN 325 MG ECTAB PO SCH (09:00)
--- NOTE | 2016-08-06 09:21 | Cardiology Follow-Up ---
Subjective Subjective Date of Service: Aug 06, 2016. Pt evaluation today including: conversation w/ patient, conversation w/ family , physical exam, chart review, lab review, review of studies, conversation w/ field sales consultant, review of inpatient medication list Additional Details: Feeling well this AM. No chest pain overnight. Headache improving. No events on telemetry overnight Problem List Medical Problems: (1) Acute bacterial sinusitis Status: Acute (2) Acute myocardial infarction Status: Acute (3) Hypertension Status: Chronic (4) Non-STEMI (non-ST elevated myocardial infarction) Status: Acute (5) Sinusitis Status: Acute Review of Systems Constitutional: + fatigue, No fever Eyes: No worsening of vision ENT: + nasal symptoms, No hearing loss, No unusual epistaxis Cardiac: No chest pain Abdomen: No pain Musculoskeletal: No joint pain Neurologic: No numbness/tingling Psychiatric: No depression symptoms Skin: No rash Objective Vital Signs Last Vital Signs Documentation Date Time Temp Pulse Resp B/P Pulse Ox O2 Delivery O2 Flow Rate FiO2 08/06/16 06:00 66 15 124/75 98 Room Air 08/06/16 04:00 37.5 Physical Exam: General Appearance: WD/WN, no apparent distress ENT: normal ENT inspection, hearing grossly normal Neck: supple Respiratory/Chest: chest non-tender, lungs clear, normal breath sounds Cardiovascular: regular rate, rhythm, no edema, no gallop, no JVD, no murmur Abdomen: normal bowel sounds, non tender, soft, no organomegaly Extremities: no pedal edema, + pertinent finding (right radial access site without hematoma. Good distal pulses) Neurologic/Psychiatric: alert, normal mood/affect, oriented x 3 Skin: normal color, warm/dry, no rash Assessment and Plan 1. NSTEMI/Subtotal mid LAD occlusion post PCI with GRACIE to proximal-mid LAD 2. HTN 3. Acute Sinusitis Chest pain free, hemodynamically and electrically stable overnight. Echo shows LAD regional wall motion abnormality but overall preserved LV function, Trop has peaked Continue on ASA/Ticagrelor Continue high dose statin, FABIÁN/BBlocker Ok for transfer to telemetry. If remains stable likely discharge tomorrow AM from cardiac standpoint. Medications: Current Inpatient Medications Medications (Trade) Dose Ordered Sig/Rober Route Start Time Stop Time Status Last Admin Dose Admin Acetaminophen (Tylenol Tab) 650 mg Q4H PRN PO 08/05/16 08:45 09/04/16 08:44 08/05/16 18:03 650 MG Lorazepam (Ativan Tab) 0.5 mg Q4H PRN PO 08/05/16 08:45 09/04/16 08:44 08/05/16 22:04 0.5 MG Nitroglycerin (Nitrostat Tab) 0.4 mg UD PRN SL 08/05/16 08:45 09/04/16 08:44 Nitroglycerin (Nitroglycerin 2% Oint) 1 inch Q6H EXT 08/05/16 12:00 09/04/16 11:59 08/06/16 05:36 1 INCH Al Hydrox/Mg Hydrox/Simethicone (Maalox Max Susp) 15 ml Q4H PRN PO 08/05/16 08:45 09/04/16 08:44 Magnesium Hydroxide (Milk Of Magnesia Susp) 30 ml Q12H PRN PO 08/05/16 08:45 09/04/16 08:44 Ondansetron HCl (Zofran Inj) 4 mg Q6H PRN IV 08/05/16 08:45 09/04/16 08:44 Ranitidine HCl (zANTac TAB) 150 mg BID PO 08/05/16 09:00 09/04/16 08:59 08/06/16 08:00 150 MG Morphine Sulfate (MoRPHine SULFATE INJ) 2 mg Q2H PRN IV 08/05/16 08:45 08/19/16 08:44 Amoxicillin/ Clavulanate Potassium (Augmentin Tab) 875 mg BIDM PO 08/05/16 16:30 08/15/16 07:00 08/06/16 08:00 875 MG Sodium Chloride ([place] Nasal [place]) 2 sprays QID NA 08/05/16 13:00 09/04/16 12:59 08/06/16 08:28 2 SPRAYS Atropine Sulfate (Atropine Sulfate 0.1MG/Ml Inj) 0.5 mg ONE PRN IV 08/05/16 14:30 09/04/16 14:29 Atorvastatin Calcium (Lipitor Tab) 80 mg QAM PO 08/06/16 09:00 09/05/16 08:59 08/06/16 07:59 80 MG Metoprolol Tartrate (Lopressor Tab) 25 mg Q12 PO 08/05/16 21:00 2/15/17 20:59 08/06/16 08:00 25 MG Lisinopril (Zestril Tab) 5 mg QAM PO 08/06/16 09:00 09/05/16 08:59 08/06/16 08:00 5 MG Ticagrelor (Brilinta Cap) 90 mg BID PO 08/05/16 21:00 09/04/16 20:59 08/05/16 20:48 90 MG Aspirin (Ecotrin Tab) 81 mg QAM PO 08/06/16 09:00 09/05/16 08:59 08/06/16 08:00 81 MG Lab Results: 08/06/16 05:10 Red Blood Count 3.66, Mean Corpuscular Volume 91.5, Mean Corpuscular Hemoglobin 32.0, Mean Corpuscular Hemoglobin Concent 34.9, Mean Platelet Volume 10.4, Neutrophils (%) (Auto) 69.5, Lymphocytes (%) (Auto) 10.2, Monocytes (%) (Auto) 19.5, Eosinophils (%) (Auto) 0.6, Basophils (%) (Auto) 0.1, Neutrophils # (Auto ) 5.46, Lymphocytes # (Auto) 0.80, Monocytes # (Auto) 1.53, Eosinophils # (Auto ) 0.05, Basophils # (Auto) 0.01 08/06/16 05:10 Test 08/05/16 13:30 08/05/16 21:05 08/06/16 00:39 08/06/16 05:10 Kaolin Activated Coagulation Time 219 SECONDS (94-140) Bedside Glucose 103 mg/dl (70-99) Total Creatine Kinase 1979 U/L (39-308) Creatine Kinase MB 104.4 ng/ml (0.5-3.6) Creatine Kinase MB Ratio 5.3 (0-3.0) Troponin I 61.000 ng/ml (0-0.045) White Blood Count 7.86 K/uL (4.8-10.8) Red Blood Count 3.66 M/uL (4.7-6.1) Hemoglobin 11.7 g/dL (14.0-18.0) Hematocrit 33.5 % (42-52) Mean Corpuscular Volume 91.5 fL (80-100) Mean Corpuscular Hemoglobin 32.0 pg (25-34) Mean Corpuscular Hemoglobin Concent 34.9 g/dl (32-36) Platelet Count 169 K/uL (130-400) Mean Platelet Volume 10.4 fL (7.4-10.4) Neutrophils (%) (Auto) 69.5 % Lymphocytes (%) (Auto) 10.2 % Monocytes (%) (Auto) 19.5 % Eosinophils (%) (Auto) 0.6 % Basophils (%) (Auto) 0.1 % Neutrophils # (Auto) 5.46 K/uL (1.4-6.5) Lymphocytes # (Auto) 0.80 K/uL (1.2-3.4) Monocytes # (Auto) 1.53 K/uL (0.11-0.59) Eosinophils # (Auto) 0.05 K/uL (0-0.5) Basophils # (Auto) 0.01 K/uL (0-0.2) RDW Standard Deviation 43.7 fL (36.4-46.3) RDW Coefficient of Variation 13.0 % (11.5-14.5) Immature Granulocyte % (Auto) 0.1 % Immature Granulocyte # (Auto) 0.01 K/uL (0.00-0.02) Activated Partial Thromboplast Time 25.7 SECONDS (21.0-31.0) Partial Thromboplastin Ratio 1.0 Anion Gap 8.0 mmol/L (3-11) Est Creatinine Clear Calc Drug Dose 87.2 ml/min Estimated GFR () 106.7 Estimated GFR (Non- 92.0 BUN/Creatinine Ratio 15.8 (10-20) Calcium Level 8.5 mg/dl (8.5-10.1) Phosphorus Level 2.5 mg/dl (2.5-4.9) Magnesium Level 1.9 mg/dl (1.8-2.4) Total Bilirubin 0.7 mg/dl (0.2-1) Direct Bilirubin 0.2 mg/dl (0-0.2) Aspartate Amino Transf (AST/SGOT) 261 U/L (15-37) Alanine Aminotransferase (ALT/SGPT) 78 U/L (12-78) Alkaline Phosphatase 52 U/L (45-117) Total Protein 6.3 gm/dl (6.4-8.2) Albumin 3.4 gm/dl (3.4-5.0) Date/Time Source Procedure Growth Status 08/05/16 10:00 Nasal MRSA DNA Surveillance Screen - Final Specimen Negative for MRSA by DNA Probe Complete
[2016-08-06] MEDS: TICAGRELOR 90 MG TAB PO SCH ×2 (10:02→21:31)
[2016-08-06] MEDS ORDERED: NURSING VERBAL MED ORDER ONE (12:30)
[2016-08-06] MEDS ORDERED: NITROGLYCERIN 0.4 MG SL PER TAB CHARGE SL PRN (17:15)
[2016-08-06] MEDS ORDERED: TICAGRELOR 90 MG TAB PO SCH (21:00)
[2016-08-07] MEDS ORDERED: TICAGRELOR 90 MG TAB PO SCH
[2016-08-07 04:17] VITALS: BP 99/55; PULSE 71; TEMP 37.4; O2SAT 97
[2016-08-07 06:04] LABS: BASO % 0.2 %; BASO ABS # 0.01 K/uL (0-0.2); COMPLETE YES; EOS % 1.1 %; HEMATOCRIT 32.7 % (42-52); IG% 0.2 %; LYMPH % 18.1 %; LYMPH ABS # 1.15 K/uL (1.2-3.4); MEAN CELL VOLUME 91.9 fL (80-100); MEAN CORPUSCULAR HGB CONC 34.9 g/dl (32-36); MEAN PLATELET VOLUME 10.4 fL (7.4-10.4); MONO % 19.8 %; NEUT % 60.6 %; PLATELET COUNT 155 K/uL (130-400); RED BLOOD COUNT 3.56 M/uL (4.7-6.1); WHITE BLOOD COUNT 6.35 K/uL (4.8-10.8)
[2016-08-07 06:33] LABS: ALT/SGPT 66 U/L (12-78); AST/SGOT 147 U/L (15-37); BLOOD UREA NITROGEN 18 mg/dl (7-18); CALCIUM 8.5 mg/dl (8.5-10.1); CARBON DIOXIDE 28 mmol/L (21-32); CHLORIDE 106 mmol/L (98-107); CREATININE 0.83 mg/dl (0.60-1.40); GLUCOSE 101 mg/dl (70-99); MAGNESIUM 2.1 mg/dl (1.8-2.4); POTASSIUM 4.2 mmol/L (3.5-5.1); SODIUM 142 mmol/L (136-145)
[2016-08-07 06:36] LABS: ALKALINE PHOSPHATASE 52 U/L (45-117); PHOSPHORUS 2.8 mg/dl (2.5-4.9)
[2016-08-07 07:22] VITALS: BP 102/61; PULSE 79; TEMP 37.4; O2SAT 97
[2016-08-07] MEDS ORDERED: AMOXICILLIN/CLAVULANATE TAB 875 MG TAB PO SCH (07:30)
[2016-08-07 08:00] VITALS: O2SAT 97
[2016-08-07] MEDS: METOPROLOL TARTRATE 25 MG TAB PO SCH (08:18)
[2016-08-07] MEDS: ATORVASTATIN 40 MG TAB PO SCH (08:19)
[2016-08-07] MEDS: ASPIRIN 81 MG ECTAB PO SCH (08:19)
[2016-08-07] MEDS: RANITIDINE HCL 150 MG TAB PO SCH (08:19)
[2016-08-07] MEDS: TICAGRELOR 90 MG TAB PO SCH (08:20)
[2016-08-07] MEDS: LISINOPRIL 5 MG TAB PO SCH (08:20)
[2016-08-07] MEDS: AMOXICILLIN/CLAVULANATE TAB 875 MG TAB PO SCH (08:20)
[2016-08-07] MEDS: SODIUM CHLORIDE 0.65% NA SOLN 45 ML (OCEAN) SCH (08:21)
[2016-08-07] MEDS ORDERED: LISINOPRIL 5 MG TAB PO SCH (09:00)
[2016-08-07] MEDS ORDERED: ATORVASTATIN 20 MG TAB PO SCH (09:00)
[2016-08-07] MEDS ORDERED: ASPIRIN 81 MG ECTAB PO SCH (09:00)
[2016-08-07] MEDS ORDERED: MULTIVITAMIN TAB PO SCH (09:00)
[2016-08-07] MEDS ORDERED: LSN5 PO (10:25)
--- NOTE | 2016-08-07 10:33 | Discharge Summary ---
Discharge Summary Admission Date: Aug 05, 2016 at 08:43 Discharge Date: Aug 07, 2016 Discharge Disposition: Home Problems/Secondary Diagnoses: NSTEMI HTN Acute Sinusitis Medication Reconciliation New Medications: Atorvastatin (Lipitor) 80 Mg Tab 1 TAB PO DAILY for 90 Days, #90 TAB 1 Refill Lisinopril (Lisinopril) 5 Mg Tab 2.5 MG PO DAILY for 30 Days, #30 Amoxicillin & Pot Clavulanate (Amoxicillin/Clavulanate P) 1 Tab Tab 875 MG PO BIDM for 5 Days, #10 TAB Aspirin (Aspirin EC Low Dose) 81 Mg Ectab 81 MG PO QAM for 30 Days, #30 Metoprolol Tartrate (Lopressor) 25 Mg Tab 25 MG PO Q12 for 30 Days, #60 TAB Nitroglycerin (Nitrostat) 0.4 Mg/1 Tab Subl 0.4 MG SL UD PRN for Chest Pain for 30 Days, #25 Ticagrelor (Brilinta) 90 Mg Tab 90 MG PO BID for 30 Days, #60 TAB 9 Refills Continued Medications: Cholecalciferol (Vitamin D) 5,000 Unit Tab 1 TAB PO DAILY Cholecalciferol (Vitamin D) 5,000 Unit Tab 1 TAB PO DAILY Multivitamin (Multivitamin) Tab 1 TAB PO DAILY, TAB Discontinued Medications: Atenolol (Tenormin) 25 Mg Tab 25 MG PO DAILY, TAB Cod Liver Oil (Cod Liver Oil) 1 Oil Oil 1 PO DAILY Lutein-Zeaxanthin (Lutein) 1 Cap Cap 1 CAP PO DAILY Lycopene (Lycopene) 1 Cap Cap 1 CAP PO DAILY Pomegranate (Punica Granatum) (Pomegranate Extract) 250 Mg Cap 1000 MG PO DAILY Referrals At Discharge Follow up Referrals: Emergency Nurse Referral - Within 1-2 Weeks with Marcelo Singletary MD Discharge Exam Review of Systems: Constitutional: No chills, No fever Eyes: No worsening of vision ENT: No hearing loss Respiratory: No cough, No shortness of breath Cardiovascular: No chest pain, No orthopnea Abdomen: No nausea, No pain, No vomiting Musculoskeletal: No joint pain Genitourinary - Male: No hematuria Neurologic: No memory loss, No paralysis Psychiatric: No depression symptoms Endocrine: No fatigue Hematologic / Lymphatic: No abnormal bleeding/bruising Integumentary: No rash Physical Exam: General Appearance: no apparent distress Eyes: normal inspection, PERRL, EOMI ENT: normal ENT inspection Neck: supple Respiratory/Chest: chest non-tender, lungs clear, normal breath sounds, no respiratory distress, no accessory muscle use Cardiovascular: regular rate, rhythm, no edema, no gallop, no JVD, no murmur Abdomen / GI: normal bowel sounds, non tender, soft, no organomegaly, no pulsatile mass, normal rectal exam Extremities: normal inspection, no calf tenderness, normal capillary refill , no pedal edema Neurologic/Psychiatric: chargeback specialist II-XII nml as tested, no motor/sensory deficits , alert, normal mood/affect, normal reflexes, oriented x 3 Skin: normal color, warm/dry, no rash Hospital Course 71 years old man presented with chest pain, found to have NSTEMI Patient was admitted to ICU and started on Heparin drip 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 Severe 2 vessel coronary artery disease - Diffuse proximal LAD disease with 99% mid LAD stenosis with thrombus - 80% focal sequential lesions in moderate sized OM1 2. Normal intracardiac filling pressures 3. Successful PCI of proximal to mid LAD with 1 drug-eluting stent (Xience 3.0 x 33) post-dilated to 3.5 2D echo showed EF of 60% with some hypokinesia, consistent with LAD disease serial cardiac enz after cath he was started on Aspirin / Brilinta BP meds changed to metoprolol 25mg po BID/Lisinopril, instructed to check renal function in 2 weeks today pressure was found to be low so Metoprolol was decreased to 12.5 mg BID and lisinopril was decreased to 2.5 mg daily LDL was 130, lipitor 80mg po daily was added also started on NTG SL prn pain HgbA1C was 5.4 started on Augmentin for sinusitis he was found to be stable for discharge today This includes examination of the patient, discharge planning, medication reconciliation, and communication with other providers. Discharge Instructions Please refer to the electronic Patient Visit Report (Discharge Instructions) for additional information.
[2016-08-07] MEDS ORDERED: NURSING VERBAL MED ORDER ONE (11:15)
--- NOTE | 2016-08-07 11:40 | Cardiology Follow-Up ---
Subjective Subjective Date of Service: Aug 07, 2016. Pt evaluation today including: conversation w/ patient, conversation w/ family , physical exam, chart review, lab review, review of studies, review of inpatient medication list Additional Details: Feeling well. No chest pain overnight. Headache improving. No other new complaints. Problem List Medical Problems: (1) Acute bacterial sinusitis Status: Acute (2) Acute myocardial infarction Status: Acute (3) Hypertension Status: Chronic (4) Non-STEMI (non-ST elevated myocardial infarction) Status: Acute (5) Sinusitis Status: Acute Review of Systems Constitutional: + fatigue, No fever Eyes: No worsening of vision ENT: + nasal symptoms, No hearing loss, No unusual epistaxis Cardiac: No chest pain Abdomen: No pain Musculoskeletal: No joint pain Neurologic: No numbness/tingling Psychiatric: No depression symptoms Skin: No rash Objective Vital Signs Last Vital Signs Documentation Date Time Temp Pulse Resp B/P Pulse Ox O2 Delivery O2 Flow Rate FiO2 08/07/16 08:58 Room Air 08/07/16 08:00 97 08/07/16 07:22 37.4 79 18 102/61 Physical Exam: General Appearance: WD/WN, no apparent distress ENT: hearing grossly normal Neck: supple Respiratory/Chest: lungs clear, normal breath sounds Cardiovascular: regular rate, rhythm, no edema, no gallop, no murmur Abdomen: non tender, soft Extremities: no pedal edema, + pertinent finding (right radial access site without hematoma. Good distal pulses) Neurologic/Psychiatric: alert, normal mood/affect, oriented x 3 Skin: normal color, warm/dry, no rash Assessment and Plan 1. NSTEMI/Subtotal mid LAD occlusion post PCI with GRACIE to proximal-mid LAD 2. HTN 3. Acute Sinusitis Chest pain free, hemodynamically and electrically stable overnight. From a cardiac standpoint OK for discharge to home. Discharge on ASA and Ticagrelor - further discussion of long-term antiplatelets as an outpatient Continue current statin, FABIÁN, Bblocker Follow-up with me in 2-3 weeks. Will talk about cardiac rehab at that time. Appreciate hospital medicine care. Medications: Current Inpatient Medications Medications (Trade) Dose Ordered Sig/Rober Route Start Time Stop Time Status Last Admin Dose Admin Acetaminophen (Tylenol Tab) 650 mg Q4H PRN PO 08/05/16 08:45 09/04/16 08:44 08/05/16 18:03 650 MG Lorazepam (Ativan Tab) 0.5 mg Q4H PRN PO 08/05/16 08:45 09/04/16 08:44 08/05/16 22:04 0.5 MG Nitroglycerin (Nitrostat Tab) 0.4 mg UD PRN SL 08/05/16 08:45 09/04/16 08:44 Al Hydrox/Mg Hydrox/Simethicone (Maalox Max Susp) 15 ml Q4H PRN PO 08/05/16 08:45 09/04/16 08:44 Magnesium Hydroxide (Milk Of Magnesia Susp) 30 ml Q12H PRN PO 08/05/16 08:45 09/04/16 08:44 Ondansetron HCl (Zofran Inj) 4 mg Q6H PRN IV 08/05/16 08:45 09/04/16 08:44 Ranitidine HCl (zANTac TAB) 150 mg BID PO 08/05/16 09:00 09/04/16 08:59 08/07/16 08:19 150 MG Morphine Sulfate (MoRPHine SULFATE INJ) 2 mg Q2H PRN IV 08/05/16 08:45 08/19/16 08:44 Amoxicillin/ Clavulanate Potassium (Augmentin Tab) 875 mg BIDM PO 08/05/16 16:30 08/15/16 07:00 08/07/16 08:20 875 MG Sodium Chloride ([place] Nasal [place]) 2 sprays QID NA 08/05/16 13:00 09/04/16 12:59 08/07/16 08:21 2 SPRAYS Atorvastatin Calcium (Lipitor Tab) 80 mg QAM PO 08/06/16 09:00 09/05/16 08:59 08/07/16 08:19 80 MG Lisinopril (Zestril Tab) 5 mg QAM PO 08/06/16 09:00 09/05/16 08:59 08/07/16 08:20 5 MG Ticagrelor (Brilinta Cap) 90 mg BID PO 08/05/16 21:00 09/04/16 20:59 08/07/16 08:20 90 MG Aspirin (Ecotrin Tab) 81 mg QAM PO 08/06/16 09:00 09/05/16 08:59 08/07/16 08:19 81 MG Metoprolol Tartrate (Lopressor Tab) 12.5 mg Q12 PO 08/06/16 21:00 09/05/16 20:59 08/07/16 08:18 12.5 MG Multivitamins (Multivitamin Tab) 1 tab DAILY PO 08/07/16 09:00 09/06/16 08:59 08/07/16 08:19 1 TAB Ticagrelor (Brilinta Cap) 90 mg BID PO 08/07/16 00:00 08/07/16 23:59 No refill Lab Results: 08/07/16 05:51 Red Blood Count 3.56, Mean Corpuscular Volume 91.9, Mean Corpuscular Hemoglobin 32.0, Mean Corpuscular Hemoglobin Concent 34.9, Mean Platelet Volume 10.4, Neutrophils (%) (Auto) 60.6, Lymphocytes (%) (Auto) 18.1, Monocytes (%) (Auto) 19.8, Eosinophils (%) (Auto) 1.1, Basophils (%) (Auto) 0.2, Neutrophils # (Auto ) 3.85, Lymphocytes # (Auto) 1.15, Monocytes # (Auto) 1.26, Eosinophils # (Auto ) 0.07, Basophils # (Auto) 0.01 08/07/16 05:51 Test 08/07/16 05:51 White Blood Count 6.35 K/uL (4.8-10.8) Red Blood Count 3.56 M/uL (4.7-6.1) Hemoglobin 11.4 g/dL (14.0-18.0) Hematocrit 32.7 % (42-52) Mean Corpuscular Volume 91.9 fL (80-100) Mean Corpuscular Hemoglobin 32.0 pg (25-34) Mean Corpuscular Hemoglobin Concent 34.9 g/dl (32-36) Platelet Count 155 K/uL (130-400) Mean Platelet Volume 10.4 fL (7.4-10.4) Neutrophils (%) (Auto) 60.6 % Lymphocytes (%) (Auto) 18.1 % Monocytes (%) (Auto) 19.8 % Eosinophils (%) (Auto) 1.1 % Basophils (%) (Auto) 0.2 % Neutrophils # (Auto) 3.85 K/uL (1.4-6.5) Lymphocytes # (Auto) 1.15 K/uL (1.2-3.4) Monocytes # (Auto) 1.26 K/uL (0.11-0.59) Eosinophils # (Auto) 0.07 K/uL (0-0.5) Basophils # (Auto) 0.01 K/uL (0-0.2) RDW Standard Deviation 44.6 fL (36.4-46.3) RDW Coefficient of Variation 13.3 % (11.5-14.5) Immature Granulocyte % (Auto) 0.2 % Immature Granulocyte # (Auto) 0.01 K/uL (0.00-0.02) Activated Partial Thromboplast Time 26.6 SECONDS (21.0-31.0) Partial Thromboplastin Ratio 1.0 Anion Gap 8.0 mmol/L (3-11) Est Creatinine Clear Calc Drug Dose 76.7 ml/min Estimated GFR () 101.2 Estimated GFR (Non- 87.3 BUN/Creatinine Ratio 22.0 (10-20) Calcium Level 8.5 mg/dl (8.5-10.1) Phosphorus Level 2.8 mg/dl (2.5-4.9) Magnesium Level 2.1 mg/dl (1.8-2.4) Total Bilirubin 0.5 mg/dl (0.2-1) Direct Bilirubin < 0.1 mg/dl (0-0.2) Aspartate Amino Transf (AST/SGOT) 147 U/L (15-37) Alanine Aminotransferase (ALT/SGPT) 66 U/L (12-78) Alkaline Phosphatase 52 U/L (45-117) Total Protein 6.2 gm/dl (6.4-8.2) Albumin 3.0 gm/dl (3.4-5.0)
[2016-08-07 12:19] VITALS: BP 102/61; PULSE 79; TEMP 37.4; O2SAT 97
== END 2016-08-07 12:25 | disposition home or self-care (01) | DRG 247 ==
LOC: ENRESERVDT → ENRESERVTM → C.EDB 06:13 → C.MSICU 08:43 → C.2E 08-06 11:04
PROVIDERS: ADMIT Internal Medicine; ATTEND Internal Medicine
PROC: 4A023N7 Measurement of Cardiac Sampling and Pressure, Left Heart, Percutaneous Approach (ICD-10-PCS; principal; 2016-08-05 10:53)
PROC: 027034Z Dilation of Coronary Artery, One Artery with Drug-eluting Intraluminal Device, Percutaneous Approach (ICD-10-PCS; principal; 2016-08-05 10:53)
PROC: B2111ZZ Fluoroscopy of Multiple Coronary Arteries using Low Osmolar Contrast (ICD-10-PCS; principal; 2016-08-05 10:53)
DX: I21.4 Non-ST elevation (NSTEMI) myocardial infarction (principal); J01.20 Acute ethmoidal sinusitis, unspecified; J01.10 Acute frontal sinusitis, unspecified; I10 Essential (primary) hypertension; I25.10 Atherosclerotic heart disease of native coronary artery without angina pectoris; Z85.46 Personal history of malignant neoplasm of prostate; Z79.899 Other long term (current) drug therapy

== ENCOUNTER → 2016-09-24 | Outpatient (CLI) | payer BC ==
[~2016-09-24] MED LIST changes: +AMOX1TAB43 PO; +ASPEC81 PO; -ATEN-173 PO; +ATOR-26 PO; +BRL90 PO; -COD1OIL4 PO; +LPR25 PO; +LSN5 PO; -LUTE15CA PO; -LYCOCAP2 PO; +NTRSLP4 SL; -[UNRECOGNIZED DRUG - CODE] PO
[2016-09-24 15:11] LABS: ALT/SGPT 59 U/L (12-78); BLOOD UREA NITROGEN 15 mg/dl (7-18); BUN/CREATININE RATIO 17.8 (10-20); CALCIUM 9.5 mg/dl (8.5-10.1); CARBON DIOXIDE 25 mmol/L (21-32); CHLORIDE 104 mmol/L (98-107); CREATININE 0.86 mg/dl (0.60-1.40); GLUCOSE 91 mg/dl (70-99); SODIUM 141 mmol/L (136-145)
[2016-09-24 15:16] LABS: ALB/GLOB RATIO 1.2 (0.9-2); ALKALINE PHOSPHATASE 75 U/L (45-117); AST/SGOT 39 U/L (15-37)
== END | disposition home or self-care (01) ==
LOC: C.LAB 13:24
PROVIDERS: ATTEND Internal Medicine Cardiovascular Disease
DX: I25.10 Atherosclerotic heart disease of native coronary artery without angina pectoris (principal)

== ENCOUNTER → 2016-11-07 | Outpatient (CLI) | payer BC ==
[2016-11-07 17:06] LABS: BASO % 0.2 %; BASO ABS # 0.01 K/uL (0-0.2); COMPLETE YES; EOS % 2.6 %; HEMATOCRIT 36.8 % (42-52); IG% 0.2 %; LYMPH % 27.6 %; LYMPH ABS # 1.36 K/uL (1.2-3.4); MEAN CELL VOLUME 95.3 fL (80-100); MEAN CORPUSCULAR HEMOGLOBIN 32.1 pg (25-34); MEAN CORPUSCULAR HGB CONC 33.7 g/dl (32-36); MEAN PLATELET VOLUME 11.2 fL (7.4-10.4); MONO % 12.8 %; NEUT % 56.6 %; PLATELET COUNT 207 K/uL (130-400); RED BLOOD COUNT 3.86 M/uL (4.7-6.1); WHITE BLOOD COUNT 4.92 K/uL (4.8-10.8)
[2016-11-07 17:33] LABS: CHOLESTEROL/HDL RATIO 1.7; THYROID STIMULATING HORMONE 5.82 uIu/ml (0.300-4.500)
== END | disposition home or self-care (01) ==
LOC: C.LABBC 15:08
PROVIDERS: ATTEND Internal Medicine Geriatric Medicine
DX: I10 Essential (primary) hypertension (principal); E03.9 Hypothyroidism, unspecified; D64.9 Anemia, unspecified; I25.10 Atherosclerotic heart disease of native coronary artery without angina pectoris; E55.9 Vitamin D deficiency, unspecified

== ENCOUNTER → 2016-11-22 | Outpatient (CLI) | payer BC ==
[2016-11-22 17:00] LABS: BASO % 0.2 %; BASO ABS # 0.01 K/uL (0-0.2); COMPLETE YES; EOS % 2.6 %; HEMATOCRIT 37.4 % (42-52); IG% 0.2 %; LYMPH ABS # 1.29 K/uL (1.2-3.4); MEAN CELL VOLUME 95.4 fL (80-100); MEAN CORPUSCULAR HEMOGLOBIN 31.4 pg (25-34); MEAN CORPUSCULAR HGB CONC 32.9 g/dl (32-36); MEAN PLATELET VOLUME 11.1 fL (7.4-10.4); MONO % 11.8 %; NEUT % 65.2 %; PLATELET COUNT 214 K/uL (130-400); RED BLOOD COUNT 3.92 M/uL (4.7-6.1); WHITE BLOOD COUNT 6.44 K/uL (4.8-10.8)
[2016-11-22 17:24] LABS: ALT/SGPT 59 U/L (12-78); AST/SGOT 33 U/L (15-37); BLOOD UREA NITROGEN 13 mg/dl (7-18); BUN/CREATININE RATIO 13.6 (10-20); CARBON DIOXIDE 31 mmol/L (21-32); CHLORIDE 104 mmol/L (98-107); CREATININE 0.96 mg/dl (0.60-1.40); GLUCOSE 87 mg/dl (70-99); POTASSIUM 4.1 mmol/L (3.5-5.1); SODIUM 140 mmol/L (136-145)
[2016-11-22 17:25] LABS: ALB/GLOB RATIO 1.4 (0.9-2); ALKALINE PHOSPHATASE 85 U/L (45-117)
[2016-11-22 17:42] LABS: LYME DISEASE AB IGG NEG (NEG); LYME DISEASE AB IGM NEG (NEG)
== END | disposition home or self-care (01) ==
LOC: C.LAB 14:50
PROVIDERS: ATTEND Internal Medicine
DX: I10 Essential (primary) hypertension (principal); C61 Malignant neoplasm of prostate; R53.83 Other fatigue

== ENCOUNTER → 2017-11-11 | Outpatient (CLI) | payer BC ==
[~2017-11-11] MED LIST changes: -ASPEC81 PO; +ASPI-320 PO
[2017-11-11 17:58] LABS: EOS % 3.3 %; EOS ABS # 0.14 K/uL (0-0.5); HEMATOCRIT 36.3 % (42-52); HEMOGLOBIN 12.4 g/dL (14.0-18.0); IG# 0.01 K/uL (0.00-0.02); LYMPH % 39.7 %; MEAN CELL VOLUME 93.3 fL (80-100); MEAN CORPUSCULAR HEMOGLOBIN 31.9 pg (25-34); MEAN CORPUSCULAR HGB CONC 34.2 g/dl (32-36); MEAN PLATELET VOLUME 10.9 fL (7.4-10.4); MONO % 11.7 %; NEUT % 45.1 %; NEUT ABS # 1.93 K/uL (1.4-6.5); PLATELET COUNT 179 K/uL (130-400); RED CELL DISTRIBUTION WIDTH CV 13.4 % (11.5-14.5); RED CELL DISTRIBUTION WIDTH SD 45.9 fL (36.4-46.3); WHITE BLOOD COUNT 4.28 K/uL (4.8-10.8)
[2017-11-11 18:19] LABS: ALBUMIN 4.1 gm/dl (3.4-5.0); ALT/SGPT 122 U/L (12-78); AST/SGOT 71 U/L (15-37); BLOOD UREA NITROGEN 15 mg/dl (7-18); CALCIUM 9.1 mg/dl (8.5-10.1); CARBON DIOXIDE 28 mmol/L (21-32); CHOLESTEROL 120 mg/dl (0-200); CREATININE 0.95 mg/dl (0.60-1.40); GLUCOSE 86 mg/dl (70-99); SODIUM 139 mmol/L (136-145); TOTAL PROTEIN 7.8 gm/dl (6.4-8.2)
[2017-11-11 18:28] LABS: ALKALINE PHOSPHATASE 98 U/L (45-117); LDL CHOLESTEROL CALCULATED 35 mg/dl
== END | disposition home or self-care (01) ==
LOC: C.LABBC 15:15
PROVIDERS: ATTEND Internal Medicine Geriatric Medicine
DX: I10 Essential (primary) hypertension (principal); E03.9 Hypothyroidism, unspecified; D64.9 Anemia, unspecified; I25.10 Atherosclerotic heart disease of native coronary artery without angina pectoris; E55.9 Vitamin D deficiency, unspecified

== ENCOUNTER → 2017-11-27 | Outpatient (CLI) | payer BC ==
--- NOTE | 2017-11-27 18:01 | DIAGNOSTIC IMAGING REPORT ---
CHEST 2 VIEWS ROUTINE CLINICAL HISTORY: 72 years-old Male presenting with R07.9 Chest pain. TECHNIQUE: PA and lateral views of the chest were obtained. COMPARISON: 08/05/2016. FINDINGS: Cardiomediastinal silhouette normal. Calcified granulomas may be present. Lungs are somewhat heterogeneous. No focal opacity. No hyperinflation. No pleural effusion or pneumothorax. Osseous structures normal. Upper abdomen normal. IMPRESSION: 1. Findings equivocal for emphysema. No focal infiltrate to suggest pneumonia. Electronically signed by: Ford Oliver M.D. 11/27/2017 6:00 PM Dictated Date/Time: 11/27/2017 5:59 PM
== END | disposition home or self-care (01) ==
LOC: C.LABBC 15:27
PROVIDERS: ATTEND Internal Medicine Geriatric Medicine
DX: R07.9 Chest pain, unspecified (principal)

== ENCOUNTER → 2017-11-28 | Outpatient (CLI) | payer BC ==
--- NOTE | 2017-11-28 15:07 | DIAGNOSTIC IMAGING REPORT ---
ABD WITH IV AND ORAL CONT (CT) CLINICAL HISTORY: 72 years-old Male presenting with pain across the upper abdomen. TECHNIQUE: Multidetector CT of the abdomen was performed after the administration of oral and intravenous contrast. IV contrast: 94 mL of Optiray 320. A dose lowering technique was used consistent with the principles of ALARA (as low as reasonably achievable). COMPARISON: None. CT DOSE (mGy.cm): The estimated cumulative dose is 342.84 mGycm. FINDINGS: Staffing Analyst topogram: Unremarkable. Lung bases: Lungs and pleural spaces clear. Fat-containing left Bochdalek hernia. Normal heart size. No pericardial or pleural effusion. Liver: Normal morphology. No liver lesion. Patent hepatic vasculature. Biliary: No intrahepatic or extrahepatic biliary ductal dilatation. Normal gallbladder. Pancreas: Mild parenchymal atrophy. Spleen: Normal. Adrenal glands: Normal. Kidneys and ureters: Punctate nonobstructing calculus at the upper pole of the right kidney. Minimal nonspecific perinephric fat stranding. Subcentimeter hypodensity in the interpolar region of the right kidney may contain fat, simple cyst versus angiomyolipoma. Additional simple cysts noted in the right kidney. Mild pelvocaliectasis bilaterally. No convincing evidence of hydronephrosis. Bowel: Apparent soft tissue masslike thickening at the adjacent to the ileocecal valve (series 3 image 166). No bowel obstruction. Duodenal diverticulum noted. Peritoneal cavity: No free fluid or intraperitoneal gas. Lymph nodes: No enlarged lymph nodes in the abdomen. Vasculature: Atherosclerosis of the normal caliber abdominal aorta. IVC patent. Abdominal wall: Normal. Musculoskeletal: Degenerative changes of the spine. IMPRESSION: 1. Masslike thickening at the level of the ileocecal valve. Underlying neoplasm is not excluded. Gastroenterology consultation for possible colonoscopy to be considered. 2. Punctate nonobstructing right renal calculus. Mild pelvocaliectasis bilaterally without convincing evidence of hydronephrosis. Electronically signed by: Ford Oliver M.D. 11/28/2017 3:05 PM Dictated Date/Time: 11/28/2017 2:52 PM
== END | disposition home or self-care (01) ==
LOC: C.CTS 13:59
PROVIDERS: ATTEND Internal Medicine Geriatric Medicine
DX: R10.9 Unspecified abdominal pain (principal)